=== PATIENT | female | born 1980 | race Caucasian/White ===

== ENCOUNTER → 2017-11-14 17:36 | Outpatient (CLI) | payer OTHER, SELFPAY ==
--- NOTE | 2017-11-14 17:42 | DI.RAD.S_ITS ---
PROCEDURE: XR KNEE RT 3V INDICATIONS: knee pain from fall with effusion. Valgus motion TECHNIQUE: 3 views of the knee were acquired. COMPARISON: None. FINDINGS: Bones: No fractures or dislocations. No suspicious bony lesions. Soft tissues: Small joint effusion. No suspicious soft tissue calcifications. IMPRESSION: Small joint effusion. No acute fractures or dislocations. If symptoms persist consider a followup radiographic series or noncontrast MRI. Dictated by: Km Us M.D. on 11/14/2017 at 18:37 Approved by: Km Us M.D. on 11/14/2017 at 18:38
--- NOTE | 2017-11-14 17:42 | DI.RAD.S_ITS ---
PROCEDURE: XR TIBIA FUBULA RT 2V INDICATIONS: knee pain from fall with effusion. TECHNIQUE: 2 views of the tibia and fibula were acquired. COMPARISON: None. FINDINGS: Bones: No fractures or dislocations. No suspicious bony lesions. Soft tissues: No suspicious soft tissue calcifications or masses. IMPRESSION: No acute fractures or dislocations. Dictated by: Km Us M.D. on 11/14/2017 at 18:37 Approved by: Km Us M.D. on 11/14/2017 at 18:37
--- NOTE | 2017-11-14 17:42 | DI.RAD.S_ITS ---
PROCEDURE: XR ANKLE RT MIN 3V INDICATIONS: knee pain from fall with effusion. TECHNIQUE: 3 views of the ankle were acquired. COMPARISON: None. FINDINGS: Bones: No fractures or dislocations. Ankle mortise is normally aligned. No suspicious bony lesions. Soft tissues: No tibiotalar joint effusion. Achilles tendon appears normal. IMPRESSION: No acute fractures or dislocations. Please note, the anterior talar process is poorly seen and cannot be evaluated. Dictated by: Km Us M.D. on 11/14/2017 at 18:38 Approved by: Km Us M.D. on 11/14/2017 at 18:39
== END ==
PROVIDERS: Family Provider Internal Medicine; PCP Internal Medicine; Visit Provider Physician Assistant
DX: M25.561 Pain in right knee (principal); M25.461 Effusion, right knee
CPT/HCPCS: 73562; 73590; 73610

== ENCOUNTER 2017-12-16 09:11 | Emergency (ER) | payer OTHER, SELFPAY ==
[2017-12-16 09:29] VITALS: BP 131/88; PULSE 72; RESP 18; TEMP 36.7; O2SAT 99
--- NOTE | 2017-12-16 09:42 | DI.CT.S_ITS ---
PROCEDURE: CT ABDOMEN PELVIS W CON INDICATIONS: Left-sided abdominal pain TECHNIQUE: After the administration of intravenous contrast, 5 mm thick sections acquired from the diaphragm to the symphysis. 5 mm coronal and sagittal reformats were acquired. For radiation dose reduction, the following was used: automated exposure control, adjustment of mA and/or kV according to patient size. COMPARISON: [facility], CT, ABDOMEN/PELVIS WITH CONTRAST, 02/21/2015, 9:28. FINDINGS: Image quality: Excellent. ABDOMEN: Lung bases: Mild bibasilar dependent atelectasis are noted posteriorly. Heart size is normal. Solid organs: Liver is normal in size. Tiny well-circumscribed hypodense areas are noted in liver parenchyma, unchanged in size and numbers from previous study and likely represent benign cysts. Gallbladder is within normal limits.. Biliary system is non dilated. Pancreas enhances normally. Spleen is normal in size and enhancement. No adrenal nodules. Kidneys demonstrate normal size and enhancement, without hydronephrosis. Peritoneum and bowel: Bowel loops demonstrate normal wall thickness and caliber. No free fluid or air. Small hiatal hernia is seen. No evidence of acute appendicitis or diverticulitis. Nodes and vessels: No retroperitoneal or mesenteric adenopathy by size criteria. Aorta and inferior vena cava are normal in size. Miscellaneous: No ventral hernias. PELVIS: Genitourinary: Bladder wall thickness is normal. Miscellaneous: No inguinal hernias or adenopathy. Bones: No suspicious bony lesions. No vertebral body compression fractures. Degenerative disc disease at L5-S1 level is noted. IMPRESSION: No acute inflammatory process within abdomen or pelvis. No finding to account for patient's symptoms. Degenerative disc disease at L5-S1 level. Dictated by: Bill Tidwell M.D. on 12/16/2017 at 10:55 Approved by: Bill Tidwell M.D. on 12/16/2017 at 11:01
--- NOTE | 2017-12-16 09:52 | ED_ITS ---
HPI - Abdominal Pain General Chief Complaint: Urogenital-Female Stated Complaint: left side pain, vomitting Time Seen by Provider: 12/16/17 09:15 Source: patient Mode of arrival: ambulatory Limitations: no limitations History of Present Illness HPI narrative: Patient is a 37-year-old female here for evaluation of left upper quadrant and left CVA tenderness. She states that has been going on for 2 weeks now. Has also had diarrhea for this period of time. No fevers. No skin changes. No change in diet. No urinary symptoms. Has not tried anything for it prior to arrival. Has had some nausea and vomiting as well. Did have a abdominal hysterectomy secondary to fibroids otherwise no other abdominal surgeries. Related Data Home Medications Medication Instructions Recorded Confirmed gabapentin [Neurontin] 300 mg PO BEDTIME 12/16/17 12/16/17 Previous Rx's Medication Instructions Recorded ondansetron [Zofran ODT] 4 mg PO BID-TID PRN #7 tab 12/16/17 Allergies Allergy/AdvReac Type Severity Reaction Status Date / Time amoxicillin [AMOXICILLIN] Allergy Severe THROAT Verified 12/16/17 09:42 CLOSED OFF, RESPIRATORY DISTRESS coffee (Coffea arabica) Allergy Severe RESPIRATORY Verified 12/16/17 09:42 [COFFEE (COFFEA ARABICA)] DISTRESS guaifenesin [From MUCINEX] Allergy Severe NAUSEA/EMES Verified 12/16/17 09:42 IS clavulanic acid Allergy Unknown Verified 12/16/17 09:42 [CLAVULANIC ACID] Review of Systems Constitutional Denies fever(s) ENT Ears, Nose, Mouth, and Throat: Denies vertigo and Denies dizziness Cardiovascular Denies chest pain, Denies syncope and Denies dyspnea Respiratory Denies dyspnea Gastrointestinal Gastrointestinal: Reports abdominal pain, Denies change in stool character, Denies constipation, Reports diarrhea, Reports nausea and Reports vomiting Genitourinary Denies dysuria and Reports flank pain Musculoskeletal Denies myalgias and Denies arthralgias Integumentary/Breasts Denies pruritus and Denies rash Neurologic Denies vertigo, Denies dizziness and Denies syncope Hematologic/Lymphatic Denies easy bleeding and Denies easy bruising [facility] Medical History Fibroids (Acute) Surgical History Status post laparoscopic supracervical hysterectomy (07/09/17) Social History Smoking Status: Never smoker Exam Initial Vital Signs Initial Vital Signs: Vital Signs Temperature 98.1 F 12/16/17 09:29 Pulse Rate 72 12/16/17 09:29 Respiratory Rate 18 12/16/17 09:29 Blood Pressure 131/88 H 12/16/17 09:29 Pulse Oximetry 99 12/16/17 09:29 Const General: cooperative, healthy appearing, well developed, well groomed and No acute distress Orientation: alert, awake and oriented x3 HENMT Head: normal to inspection and normocephalic Resp Effort & Inspection: normal respiratory effort Auscultation: clear to auscultation bilaterally Cardio Rate: regular rate Rhythm: regular rhythm Heart Sounds: no murmurs Pulses: radial pulses present GI Inspection: non-distended Palpation: soft, No firm and tender (Left upper quadrant pain no rebound or guarding) Skin Lesions: lesions noted Rashes: no rashes Neuro General: alert, awake and oriented x3 Cognition: normal cognition Speech: speech normal Extrem General: normal to inspection and capillary refill normal Psych Appearance: grossly normal and well kempt Course Orders Ordered: ED Orders 12/16/17 09:42 CT abdomen pelvis w con Stat 12/16/17 09:49 Complete Blood Count AUTO DIFF Stat Comprehensive Metabolic Panel Stat Lipase Stat Discontinued Medications Sodium Chloride (Normal Saline 0.9%) 1,000 mls @ 1,000 mls/hr IV BOLUS ONE Stop: 12/16/17 10:50 Last Infusion: 12/16/17 11:38 Dose: 0 mls/hr Admin: 12/16/17 09:59 Dose: 1,000 mls/hr Morphine Sulfate (Morphine) 4 mg IV NOW ONE Stop: 12/16/17 09:43 Last Admin: 12/16/17 09:59 Dose: 4 mg Ondansetron HCl (Zofran) 4 mg IV NOW ONE Stop: 12/16/17 09:43 Last Admin: 12/16/17 09:59 Dose: 4 mg Ondansetron HCl (Zofran) 4 mg IV NOW ONE Stop: 12/16/17 10:57 Last Admin: 12/16/17 11:02 Dose: 4 mg Vital Signs - 8 hr 12/16/17 09:29 12/16/17 11:02 Temperature 98.1 F Pulse Rate 72 60 Respiratory Rate 18 12 Blood Pressure 131/88 H Blood Pressure [Right Arm] 127/70 H Pulse Oximetry 99 100 MDM - Abdominal Pain Lab Data Attestation: I reviewed the patient's lab results. Result diagrams: 12/16/17 09:49 12/16/17 09:49 Lab Results 12/16/17 12/16/17 Range/Units 09:49 09:49 WBC 8.0 (4.5-11.0) X10^3/uL RBC 4.67 (4.0-5.2) X10^6/uL Hgb 13.8 (12.0-16.0) g/dL Hct 39.6 (36-46) % MCV 84.7 (80-100) fL MCH 29.5 (26-34) PG MCHC 34.9 (30-36) % RDW 12.9 (11.6-14.8) % Plt Count 242 (150-400) X10^3/uL Neut % (Auto) 77.6 H (50-75) % Lymph % (Auto) 15.4 L (25-40) % [place] % (Auto) 5.9 (3-14) % Eos % (Auto) 0.7 L (2-4) % Baso % (Auto) 0.4 (0-2) % Neut # (Auto) 6200 H (3759-4047) /uL Sodium 143 (137-145) mmol/L Potassium 3.8 (3.4-5.1) mmol/L Chloride 108 H (98-107) mmol/L Carbon Dioxide 26 (22-32) mmol/L BUN 6 L (7-17) mg/dL Creatinine 0.70 (0.52-1.04) mg/dL Estimated GFR > 60.0 (>60) mL/min BUN/Creatinine Ratio 8.6 (6-22) Glucose 108 H (70-100) mg/dL Calcium 9.1 (8.4-10.2) mg/dL Total Bilirubin 1.0 (0.2-1.3) mg/dL AST 16 (14-36) IU/L ALT 21 (9-52) IU/L Alkaline Phosphatase 63 (38-126) U/L Total Protein 7.0 (6.3-8.2) g/dL Albumin 4.1 (3.5-5.0) g/dL Globulin 2.9 (1.7-4.1) g/dL Albumin/Globulin Ratio 1.4 (1.0-2.8) Lipase 31 (23-300) U/L Point of care testing: Urine Dip Bedside Urine Glucose Negative Bedside Urine Bilirubin - Negative Bedside Urine Ketone - Negative Urine Specific [place] 1.015 Bedside Urine Occult Blood - Negative Bedside Urine Protein - Negative Bedside Urine Urobilinogen - Negative Bedside Urine Nitrite - Negative Bedside Urine Leukocytes - Negative Esterase Imaging Data CT scan - abdomen: Radiologist's impression: [address] [address] [address] Scan Report Signed Patient: Betsy Austin LMR#: [id number] : 1980Acct:[id number] Age/Sex: 37 / FDate of Service: 12/16/17 Loc: ED Accession Number: [id number] Procedure: CT abdomen pelvis w con Ordering Provider: Kiko Sims D.O. PROCEDURE: CT ABDOMEN PELVIS W CON INDICATIONS: Left-sided abdominal pain TECHNIQUE: After the administration of intravenous contrast, 5 mm thick sections acquired from the diaphragm to the symphysis. 5 mm coronal and sagittal reformats were acquired. For radiation dose reduction, the following was used: automated exposure control, adjustment of mA and/or kV according to patient size. COMPARISON: [facility], CT, ABDOMEN/PELVIS WITH CONTRAST, 02/21/2015, 9: 28. FINDINGS: Image quality: Excellent. ABDOMEN: Lung bases: Mild bibasilar dependent atelectasis are noted posteriorly. Heart size is normal. Solid organs: Liver is normal in size. Tiny well-circumscribed hypodense areas are noted in liver parenchyma, unchanged in size and numbers from previous study and likely represent benign cysts. Gallbladder is within normal limits.. Biliary system is non dilated. Pancreas enhances normally. Spleen is normal in size and enhancement. No adrenal nodules. Kidneys demonstrate normal size and enhancement, without hydronephrosis. Peritoneum and bowel: Bowel loops demonstrate normal wall thickness and caliber. No free fluid or air. Small hiatal hernia is seen. No evidence of acute appendicitis or diverticulitis. Nodes and vessels: No retroperitoneal or mesenteric adenopathy by size criteria. Aorta and inferior vena cava are normal in size. Miscellaneous: No ventral hernias. PELVIS: Genitourinary: Bladder wall thickness is normal. Miscellaneous: No inguinal hernias or adenopathy. Bones: No suspicious bony lesions. No vertebral body compression fractures. Degenerative disc disease at L5-S1 level is noted. IMPRESSION: No acute inflammatory process within abdomen or pelvis. No finding to account for patient's symptoms. Degenerative disc disease at L5-S1 level. Dictated by: Bill Tidwell M.D. on 12/16/2017 at 10:55 Approved by: Bill Tidwell M.D. on 12/16/2017 at 11:01 [facility] Narrative Medical decision making narrative: Is relatively benign abdominal exam here in the ER. CT scan was negative for acute pathology. Patient is not tried anything at home for her diarrhea. We did discuss the use of Imodium. Also sent home with a prescription for Zofran. No skin changes. Patient with given return precautions she expressed understanding and agreement with plan Discharge Plan Departure Patient Disposition: Home Clinical Impression: Abdominal pain, Vomiting and diarrhea Discharge Date/Time: 12/16/17 11:54 Interventions: ED Discharge Assessment Last Done: 12/16/17 11:53 Instructions: Diarrhea, DI for Abdominal Pain-Adult, DI for Vomiting -- Adult Activity Restrictions/Additional Instructions: Increase your fluid intake. Contact your primary care doctor on Sunday for a follow-up. Take the medication like we discussed. Return to the emergency department for any new or worsening symptoms. Recommend that you purchase Imodium/loperamide [id number] as the anti diarrheal agent. Prescriptions: New ondansetron [Zofran ODT] 4 mg tablet,disintegrating 4 mg PO BID-TID PRN (Reason: nausea and vomiting) Qty: 7 RF: 0 No Action gabapentin [Neurontin] 300 mg Capsule 300 mg PO BEDTIME RF: 0
[2017-12-16 09:56] LABS: Add Manual Diff / Slide Review NO; Basophils Percent Auto 0.4 % (0-2); Eosinophils Percent Auto 0.7 % (2-4); Hematocrit 39.6 % (36-46); Hemoglobin 13.8 g/dL (12.0-16.0); Lymphocytes Percent Auto 15.4 % (25-40); Mean Corpuscular HGB Conc 34.9 % (30-36); Mean Corpuscular Hemoglobin 29.5 PG (26-34); Mean Corpuscular Volume 84.7 fL (80-100); Monocytes Percent Auto 5.9 % (3-14); Neutrophils Absolute Auto 6200 /uL (3000-5900); Neutrophils Percent Auto 77.6 % (50-75); Platelet Count 242 X10^3/uL (150-400); Red Blood Cell Count 4.67 X10^6/uL (4.0-5.2); Red Cell Distribution Width 12.9 % (11.6-14.8)
[2017-12-16] MEDS: SODIUM CHLORIDE 0.9% 1,000 ML 1000 ML IV (09:59)
[2017-12-16] MEDS: ONDANSETRON 4 MG/2 ML INJ IV ×2 (09:59→11:02)
[2017-12-16] MEDS: MORPHINE 4 MG/ML INJ IV (09:59)
[2017-12-16 10:08] LABS: Alanine Aminotransferase 21 IU/L (9-52); Albumin 4.1 g/dL (3.5-5.0); Albumin Globulin Ratio 1.4 (1.0-2.8); Alkaline Phosphatase 63 U/L (38-126); Aspartate Aminotransferase 16 IU/L (14-36); BUN Creatinine Ratio 8.6 (6-22); Blood Urea Nitrogen 6 mg/dL (7-17); Calcium 9.1 mg/dL (8.4-10.2); Carbon Dioxide 26 mmol/L (22-32); Chloride 108 mmol/L (98-107); Estimated Glomerular Filt Rate > 60.0 mL/min (>60); Globulin 2.9 g/dL (1.7-4.1); Glucose 108 mg/dL (70-100); HEMOLYSIS < 15 (0-50); Lipase 31 U/L (23-300); Potassium 3.8 mmol/L (3.4-5.1); Sodium 143 mmol/L (137-145)
[2017-12-16 11:02] VITALS: BP 127/70; PULSE 60; RESP 12; O2SAT 100
== END 2017-12-16 11:54 | disposition home or self-care (01) ==
PROVIDERS: Emergency Provider Emergency Medicine; Family Provider Internal Medicine; PCP Internal Medicine
DX: R10.9 Unspecified abdominal pain (principal); R11.0 Nausea; R19.7 Diarrhea, unspecified
CPT/HCPCS: 36591; 74177; 80053; 81003; 83690; 85025; 96361; 96374; 96375; 96376; 99283; 99285; J2270; J2405; Q9967

== ENCOUNTER 2017-12-17 10:11 | Emergency (ER) | payer OTHER, SELFPAY ==
[2017-12-17 10:24] VITALS: BP 136/80; PULSE 65; RESP 14; TEMP 36.7; O2SAT 100
[2017-12-17 10:40] VITALS: BP 136/80; PULSE 65; RESP 14; TEMP 36.7; O2SAT 100
[2017-12-17] MEDS: ONDANSETRON 4 MG/2 ML INJ IV ×2 (11:05→12:58)
[2017-12-17 11:09] LABS: Add Manual Diff / Slide Review NO; Basophils Percent Auto 0.5 % (0-2); Eosinophils Percent Auto 0.3 % (2-4); Hematocrit 39.8 % (36-46); Hemoglobin 13.9 g/dL (12.0-16.0); Lymphocytes Percent Auto 13.1 % (25-40); Mean Corpuscular Volume 85.7 fL (80-100); Monocytes Percent Auto 4.9 % (3-14); Neutrophils Absolute Auto 7400 /uL (3000-5900); Neutrophils Percent Auto 81.2 % (50-75); Platelet Count 238 X10^3/uL (150-400); Red Blood Cell Count 4.64 X10^6/uL (4.0-5.2); Red Cell Distribution Width 12.7 % (11.6-14.8); White Blood Cell Count 9.1 X10^3/uL (4.5-11.0)
[2017-12-17 11:15] LABS: INR 1.2 (0.9-1.3); Prothrombin Time 12.7 SECONDS (10.1-12.7)
[2017-12-17 11:17] LABS: PTT Partial Thromboplastin Tim 30 SECONDS (26.4-36.2)
[2017-12-17 11:19] LABS: Alanine Aminotransferase 26 IU/L (9-52); Albumin 4.2 g/dL (3.5-5.0); Albumin Globulin Ratio 1.6 (1.0-2.8); Alkaline Phosphatase 57 U/L (38-126); Aspartate Aminotransferase 16 IU/L (14-36); BUN Creatinine Ratio 7.5 (6-22); Bilirubin Total 1.1 mg/dL (0.2-1.3); Blood Urea Nitrogen 6 mg/dL (7-17); Calcium 9.3 mg/dL (8.4-10.2); Carbon Dioxide 27 mmol/L (22-32); Chloride 106 mmol/L (98-107); Estimated Glomerular Filt Rate > 60.0 mL/min (>60); Globulin 2.7 g/dL (1.7-4.1); Glucose 99 mg/dL (70-100); HEMOLYSIS 19 (0-50); Lipase 27 U/L (23-300); Sodium 144 mmol/L (137-145); Total Protein 6.9 g/dL (6.3-8.2)
--- NOTE | 2017-12-17 11:55 | ED.NAVMDI ---
HPI - Nausea/Vomiting/Diarrhea General Chief complaint: Nausea/Vomiting/Diarrhea Stated complaint: KEEP THROWING UP, PAIN IN LEFT SIDE, DIARRHEA Time Seen by Provider: 12/17/17 10:40 Source: patient Mode of arrival: ambulatory Limitations: no limitations History of Present Illness HPI Narrative: Patient is a 37-year-old female presenting with diarrhea and vomiting. She said she has had diarrhea ongoing the last 2 weeks and over the last 3 days she has been vomiting. She was seen evaluated yesterday for the same where she had blood work and a CT. She was given Zofran to go home with and she says of brain is no longer working. She is not keeping anything down Related Data Home Medications Medication Instructions Recorded Confirmed gabapentin [Neurontin] 300 mg PO BEDTIME 12/16/17 12/16/17 Previous Rx's Medication Instructions Recorded ondansetron [Zofran ODT] 4 mg PO BID-TID PRN #7 tab 12/16/17 promethazine 25 mg PO Q6H PRN #10 tab 12/17/17 Allergies Allergy/AdvReac Type Severity Reaction Status Date / Time amoxicillin [AMOXICILLIN] Allergy Severe THROAT Verified 12/16/17 09:42 CLOSED OFF, RESPIRATORY DISTRESS coffee (Coffea arabica) Allergy Severe RESPIRATORY Verified 12/16/17 09:42 [COFFEE (COFFEA ARABICA)] DISTRESS guaifenesin [From MUCINEX] Allergy Severe NAUSEA/EMES Verified 12/16/17 09:42 IS clavulanic acid Allergy Unknown Verified 12/16/17 09:42 [CLAVULANIC ACID] Review of Systems Review of Systems GENERAL: Denies chills, fatigue, malaise, fever, sweats, travel HEENT: Denies sinus pain, ear pain, sore throat, difficulty swallowing, neck pain RESPIRATORY: Denies dyspnea, cough, wheezing, hemoptysis, sputum. CARDIOVASCULAR: Denies chest pain, palpitations, orthopnea, edema GASTROINTESTINAL: See HPI : Denies dysuria, frequency, incontinence, hematuria, urinary retention, flank pain. MUSCULOSKELETAL: Denies weakness, joint pain, or bony pain SKIN: No rash, no erythema, no pruritus NEUROLOGIC: Denies weakness, dizziness, headache, numbness, change in speech, confusion PSYCHIATRIC: No concerning psychosocial issues. 12 point review of systems is negative except for those stated above and HPI [facility] Medical History Fibroids (Acute) Healthy adult (Acute) Surgical History Status post laparoscopic supracervical hysterectomy (07/09/17) Social History Smoking Status: Never smoker Exam Initial Vital Signs Initial Vital Signs: Vital Signs Temperature 98.1 F 12/17/17 10:24 Pulse Rate 65 12/17/17 10:24 Respiratory Rate 14 12/17/17 10:24 Blood Pressure 136/80 H 12/17/17 10:24 Pulse Oximetry 100 12/17/17 10:24 GENERAL: Well-appearing, well-nourished and in no acute distress. HEENT: Head atraumatic,EOMI, pupils reactive, moist mucous membranes, neck is supple CARDIOVASCULAR: Regular rate and rhythm without murmurs, rubs or gallops. RESPIRATORY: Breath sounds equal bilaterally, no wheezes rales or rhonchi. ABDOMEN: Soft, nontender. Normoactive bowel sounds all 4 quadrants. No guarding or rebound. : No CVA tenderness EXTREMITIES: Normal range of motion, no clubbing or edema. Neurovascularly intact NEUROLOGICAL: Alert and oriented x4.Normal gait and speech. Cranial nerves II through XII grossly intact. SKIN: Warm, dry, no laceration, no petechiae, no rashes or lesions. Course Orders Ordered: ED Orders 12/17/17 10:56 Complete Blood Count AUTO DIFF Stat Comprehensive Metabolic Panel Stat Lipase Stat Partial Thromboplastin Time Stat Prothrombin Time INR Stat Discontinued Medications Sodium Chloride (Normal Saline 0.9%) 1,000 mls @ 1,000 mls/hr IV BOLUS ONE Stop: 12/17/17 13:07 Last Infusion: 12/17/17 13:21 Dose: 0 mls/hr Admin: 12/17/17 12:16 Dose: 1,000 mls/hr Ondansetron HCl (Zofran) 4 mg IV NOW ONE Stop: 12/17/17 10:29 Last Admin: 12/17/17 11:05 Dose: 4 mg Ondansetron HCl (Zofran) 4 mg IV NOW ONE Stop: 12/17/17 12:45 Last Admin: 12/17/17 12:58 Dose: 4 mg Pantoprazole Sodium (Protonix) 40 mg IV NOW ONE Stop: 12/17/17 12:45 Last Admin: 12/17/17 12:58 Dose: 40 mg Vital Signs - 8 hr 12/17/17 11:57 12/17/17 12:18 12/17/17 13:38 Pulse Rate 56 L 56 L 58 L Respiratory Rate 14 14 20 Blood Pressure 124/73 H Blood Pressure [Left Arm] 116/69 115/67 Pulse Oximetry 95 97 100 MDM - Nausea/Vomiting/Diarrhea Lab Data Attestation: I reviewed the patient's lab results. Result diagrams: 12/17/17 10:56 12/17/17 10:56 Lab Results 12/17/17 12/17/17 12/17/17 Range/Units 10:56 10:56 10:56 WBC 9.1 (4.5-11.0) X10^3/uL RBC 4.64 (4.0-5.2) X10^6/uL Hgb 13.9 (12.0-16.0) g/dL Hct 39.8 (36-46) % MCV 85.7 (80-100) fL MCH 30.0 (26-34) PG MCHC 35.0 (30-36) % RDW 12.7 (11.6-14.8) % Plt Count 238 (150-400) X10^3/uL Neut % (Auto) 81.2 H (50-75) % Lymph % (Auto) 13.1 L (25-40) % [place] % (Auto) 4.9 (3-14) % Eos % (Auto) 0.3 L (2-4) % Baso % (Auto) 0.5 (0-2) % Neut # (Auto) 7400 H (8135-6994) /uL PT 12.7 (10.1-12.7) SECONDS INR 1.2 (0.9-1.3) APTT 30 (26.4-36.2) SECONDS Sodium 144 (137-145) mmol/L Potassium 4.0 (3.4-5.1) mmol/L Chloride 106 (98-107) mmol/L Carbon Dioxide 27 (22-32) mmol/L BUN 6 L (7-17) mg/dL Creatinine 0.80 (0.52-1.04) mg/dL Estimated GFR > 60.0 (>60) mL/min BUN/Creatinine Ratio 7.5 (6-22) Glucose 99 (70-100) mg/dL Calcium 9.3 (8.4-10.2) mg/dL Total Bilirubin 1.1 (0.2-1.3) mg/dL AST 16 (14-36) IU/L ALT 26 (9-52) IU/L Alkaline Phosphatase 57 (38-126) U/L Total Protein 6.9 (6.3-8.2) g/dL Albumin 4.2 (3.5-5.0) g/dL Globulin 2.7 (1.7-4.1) g/dL Albumin/Globulin Ratio 1.6 (1.0-2.8) Lipase 27 (23-300) U/L MDM Narrative Medical decision making narrative: Patient tolerating oral fluids she feels ready and able to go home. No leukocytosis no further vomiting or diarrhea in the ED. Signs and symptoms consistent with gastroenteritis. CT negative from yesterday. Discharge Plan Departure Patient Disposition: Home Clinical Impression: Gastroenteritis Discharge Date/Time: 12/17/17 13:49 Interventions: ED Discharge Assessment Last Done: 12/17/17 13:38 Instructions: DI for Viral Gastroenteritis -- Adult Activity Restrictions/Additional Instructions: 1) You have been diagnosed with gastroenteritis 2) What to do: Drink frequent but small amounts of fluids. I recommend Gatorade or a Gatorade-like product, as it has small amounts of sugar and salts that improve fluid retention. 3) Take medications as directed 4) Follow up with your primary care provider in 2-3 days 5) Return to ER if you should have any new or worsening symptoms such as, unable to hold down fluids despite use of anti-nausea medications and the small volume oral rehydration strategy. Prescriptions: New promethazine 25 mg tablet 25 mg PO Q6H PRN (Reason: nausea and vomiting) Qty: 10 RF: 0 No Action gabapentin [Neurontin] 300 mg Capsule 300 mg PO BEDTIME RF: 0 ondansetron [Zofran ODT] 4 mg tablet,disintegrating 4 mg PO BID-TID PRN (Reason: nausea and vomiting) Qty: 7 RF: 0 Referrals: Neema Garcia MD [Primary Care Provider] -
[2017-12-17 11:57] VITALS: BP 116/69; PULSE 56; RESP 14; O2SAT 95
[2017-12-17] MEDS: SODIUM CHLORIDE 0.9% 1,000 ML 1000 ML IV (12:16)
[2017-12-17 12:18] VITALS: BP 115/67; PULSE 56; RESP 14; O2SAT 97
[2017-12-17] MEDS: PANTOPRAZOLE 40 MG VIAL IV (12:58)
--- NOTE | 2017-12-17 13:00 | PC.NURSE ---
Pt given crackers for NPO challenge. Pt able to keep crackers down without vomiting.
[2017-12-17 13:38] VITALS: BP 124/73; PULSE 58; RESP 20; O2SAT 100
== END 2017-12-17 13:49 | disposition home or self-care (01) ==
PROVIDERS: Emergency Provider Emergency Medicine; Family Provider Internal Medicine; PCP Internal Medicine
DX: K52.9 Noninfective gastroenteritis and colitis, unspecified (principal)
CPT/HCPCS: 36591; 80053; 81003; 83690; 85025; 85610; 85730; 96361; 96374; 96375; 96376; 99283; 99284; C9113; J2405

== ENCOUNTER → 2017-12-21 08:54 | Outpatient (CLI) | payer OTHER, SELFPAY ==
--- NOTE | 2017-12-21 | DI.MRI.S_ITS ---
PROCEDURE: MR KNEE RT WO CON INDICATIONS: PAIN IN RIGHT KNEE TECHNIQUE: Noncontrast sagittal PD fast spin echo and T2 fast spin echo with fat saturation, sagittal 3-D FLASH with fat saturation; coronal T1 spin echo and PD fast spin echo with fat saturation, and axial PD fast spin echo with fat saturation through the knee. COMPARISON: None. FINDINGS: Image quality: Excellent. Menisci: The medial meniscus appears intact. Marked truncated appearance of the free margin of the body of the lateral meniscus. Cruciate ligaments: The anterior and posterior cruciate ligaments appear intact. Medial structures: The medial collateral ligament appears thickened with internal signal change although no complete rupture. There is adjacent soft tissue edema. Semimembranosus appears intact. Visualized portions of the pes anserinus tendons appear normal. No abnormal bursal fluid. Lateral structures: The lateral collateral ligament, long and short heads of the biceps femoris tendon appear intact. The popliteus tendon appears normal; the popliteofibular ligament appears intact. The posterosuperior and anteroinferior popliteomeniscal fascicles appear intact. The arcuate and fabellofibular ligaments appear intact, on either side of the lateral inferior geniculate artery. Iliotibial band appears normal. Anterior structures: The quadriceps and patellar tendons appear intact. There is minimal pretibial subcutaneous edema Patellar alignment is normal. No femoral trochlear dysplasia or ventral trochlear prominence. No edema in the infrapatellar fat pad. Bones and cartilage: No discrete fracture identified however there is focal marrow edema suggestive of contusion at the posterior aspect of the lateral femoral condyle Within the medial compartment, the articular cartilage appears grossly intact. Within the lateral compartment, no focal defect is seen however there is diffuse intrasubstance signal change of the tibial cartilage. Within the patellofemoral compartment, there is mild surface fraying of the cartilage overlying the median patellar ridge and lateral facet. Joint space: There is physiologic knee joint fluid. No Ramirez's cyst. IMPRESSION: Mild marrow contusion involving the posterolateral femoral condyle. Sprain of the medial collateral ligament. No complete rupture Lateral meniscal tear involving the free margin of the body. Mild degenerative joint disease as above. Dictated by: Roque Sinclair M.D. on 12/21/2017 at 10:11 Approved by: Roque Sinclair M.D. on 12/21/2017 at 10:20
== END ==
PROVIDERS: Family Provider Internal Medicine; PCP Internal Medicine; Visit Provider Internal Medicine
DX: S83.281A Other tear of lateral meniscus, current injury, right knee, initial encounter (principal); S83.411A Sprain of medial collateral ligament of right knee, initial encounter; S80.01XA Contusion of right knee, initial encounter; M17.11 Unilateral primary osteoarthritis, right knee; M25.561 Pain in right knee
CPT/HCPCS: 73721

== ENCOUNTER → 2018-01-02 09:34 | Outpatient (CLI) | payer OTHER, SELFPAY ==
--- NOTE | 2018-01-02 | DI.CT.S_ITS ---
PROCEDURE: CT ABDOMEN PELVIS W CON INDICATIONS: Nausea, vomitting, Diarrhea. Left sided abdominal and pelvic pain. Weight loss TECHNIQUE: After the administration of oral and intravenous contrast, 5 mm thick sections acquired from the diaphragms to the symphysis. 5 mm thick coronal and sagittal reformats were performed. For radiation dose reduction, the following was used: automated exposure control, adjustment of mA and/or kV according to patient size. COMPARISON: [facility], CT, CT ABDOMEN PELVIS W CON, 12/16/2017, 10:32. FINDINGS: Image quality: Excellent. ABDOMEN: Lung bases: Lung bases are clear. Heart size is normal. Solid organs: Small right and left hepatic lobe cysts are present. Liver is otherwise normal in size and enhancement. Gallbladder is within normal limits. Biliary system is non-dilated. Pancreas enhances normally. Small posterior medial hepatic cysts are present. Spleen is otherwise normal in size and enhancement. No adrenal nodules. Kidneys are normal in size and enhancement, without hydronephrosis. Peritoneum and bowel: Stomach, small bowel, and colon loops are normal in caliber and wall thickness. No free fluid or air. Appendix not seen. No evidence of appendicitis. Nodes and vessels: No retroperitoneal or mesenteric adenopathy. Aorta and inferior vena cava are normal in caliber. Miscellaneous: No ventral hernias. PELVIS: Genitourinary: Bladder wall thickness is normal. Miscellaneous: No inguinal hernias or adenopathy. Bones: No suspicious bony lesions. No vertebral body compression fractures. IMPRESSION: 1. No acute process. 2. Appendix not seen. No evidence of appendicitis. Dictated by: Jesus Ahuja M.D. on 01/02/2018 at 11:26 Approved by: Jesus Ahuja M.D. on 01/02/2018 at 11:28
[2018-01-02 12:31] LABS: Adenovirus F 40/41 Not Detected (Not Detect); Astrovirus Not Detected (Not Detect); Campylobacter Not Detected (Not Detect); Clostridium difficile toxin AB Not Detected (Not Detect); Cryptosporidium Not Detected (Not Detect); Cyclospora cayetanensis Not Detected (Not Detect); Entamoeba histolytica Not Detected (Not Detect); Enteroaggregative E.coli Not Detected (Not Detect); Enteropathogenic E.coli Not Detected (Not Detect); Enterotoxigenic E.coli It/st Not Detected (Not Detect); Giardia lamblia Not Detected (Not Detect); Norovirus GI/GII Not Detected (Not Detect); Plesiomonsa shigelloides Not Detected (Not Detect); Rotavirus A Not Detected (Not Detect); Salmonella Not Detected (Not Detect); Shiga-like toxin-prod E.coli Not Detected (Not Detect); Shigella/Enteroinvasive E.coli Not Detected (Not Detect); Vibrio Not Detected (Not Detect); Vibrio cholerae Not Detected (Not Detect); Yersinia enterocolitica Not Detected (Not Detect)
== END ==
PROVIDERS: Family Provider Internal Medicine; PCP Internal Medicine; Visit Provider Internal Medicine
DX: R19.7 Diarrhea, unspecified (principal); R11.2 Nausea with vomiting, unspecified; R10.9 Unspecified abdominal pain; R10.2 Pelvic and perineal pain; R63.4 Abnormal weight loss
CPT/HCPCS: 74177; 87507; Q9967

== ENCOUNTER → 2018-02-01 09:55 | Outpatient (CLI) | payer OTHER, SELFPAY ==
--- NOTE | 2018-02-01 | DI.RAD.S_ITS ---
PROCEDURE: XR TIBIA FUBULA RT 2V INDICATIONS: PAIN IN RT LEG TECHNIQUE: 2 views of the tibia and fibula were acquired. COMPARISON: [facility], CR, XR KNEE RT 3V, 11/14/2017, 17:21. [facility], CR, XR TIBIA FIBULA RT 2V, 11/14/2017, 17:21. FINDINGS: Bones: No fractures or dislocations. No suspicious bony lesions. Soft tissues: No suspicious soft tissue calcifications or masses. IMPRESSION: Normal plain films. Stable from prior. Dictated by: Chris Choi M.D. on 02/01/2018 at 9:48 Approved by: Chris Choi M.D. on 02/01/2018 at 9:48
== END ==
PROVIDERS: PCP Internal Medicine; Visit Provider Internal Medicine
DX: M79.661 Pain in right lower leg (principal)
CPT/HCPCS: 73590

== ENCOUNTER → 2018-02-12 14:01 | Outpatient (CLI) | payer OTHER, SELFPAY ==
[2018-02-12 15:04] LABS: HEMOLYSIS 26 (0-50); Potassium 4.3 mmol/L (3.4-5.1)
== END ==
PROVIDERS: Family Provider Internal Medicine; PCP Internal Medicine; Visit Provider Physician Assistant Medical
DX: Z79.899 Other long term (current) drug therapy (principal)
CPT/HCPCS: 36415; 84132

== ENCOUNTER 2018-02-17 09:15 | Emergency (ER) | payer OTHER, SELFPAY ==
[2018-02-17 09:28] VITALS: BP 118/68; PULSE 58; RESP 15; TEMP 36.8; O2SAT 97; BMI 30.7
--- NOTE | 2018-02-17 10:09 | ED.NAVMDI ---
HPI - Nausea/Vomiting/Diarrhea General Chief complaint: Abdominal Pain Stated complaint: THROWING FOR 12 HOURS Time Seen by Provider: 02/17/18 09:57 Source: patient Mode of arrival: ambulatory Limitations: no limitations History of Present Illness HPI Narrative: This is a 38-year-old female has come to the emergency department for complaint of vomiting and diarrhea for the past 12 hr. Patient states afterwards she started to have headache 2. Patient states that she was at a [employer] last night, she had some alcohol up there is also a buffet and she thinks she may have had something that made her ill. Patient states that she is not really having any abdominal pain. She has been continuing to dry heave. She had Zofran ODT as well as promethazine at home she was unable to keep down and was not helpful for her symptoms. She denies any black or bloody stools with the diarrhea. She is not having any urinary urgency or dysuria. She is having some frequency but states that it has been occurring since she had her hysterectomy. She has not had any fevers. She is not having any other symptoms at this time. She did have similar symptoms for about 3 weeks this summer. She had several visits to the emergency department. She states that she had been told different things including that she had a kidney stone, she had a gastroenteritis during that time frame. She currently is denying other medical issues, she has had hysterectomy but denies other surgical intervention. She is allergic to Augmentin. Related Data Home Medications Medication Instructions Recorded Confirmed gabapentin [Neurontin] 300 mg PO BEDTIME 12/16/17 12/16/17 Previous Rx's Medication Instructions Recorded ondansetron [Zofran ODT] 4 mg PO BID-TID PRN #7 tab 12/16/17 promethazine 25 mg PO Q6H PRN #10 tab 12/17/17 Allergies Allergy/AdvReac Type Severity Reaction Status Date / Time amoxicillin [AMOXICILLIN] Allergy Severe THROAT Verified 02/17/18 09:28 CLOSED OFF, RESPIRATORY DISTRESS coffee (Coffea arabica) Allergy Severe RESPIRATORY Verified 02/17/18 09:28 [COFFEE (COFFEA ARABICA)] DISTRESS guaifenesin [From MUCINEX] Allergy Severe NAUSEA/EMES Verified 02/17/18 09:28 IS clavulanic acid Allergy Unknown Verified 02/17/18 09:28 [CLAVULANIC ACID] Review of Systems Review of Systems All systems reviewed & are unremarkable except as noted in HPI and below Constitutional Denies fever(s) and Reports headache(s) ENT Ears, Nose, Mouth, and Throat: Reports headache(s) Gastrointestinal Gastrointestinal: Reports abdominal pain, Denies melena, Denies hematochezia, Reports change in bowel habits, Denies constipation, Reports diarrhea, Reports nausea, Reports vomiting and Denies hematemesis Genitourinary Denies hematuria, Reports urinary frequency, Denies flank pain, Denies urinary incontinence, Denies urinary urgency and Denies other (flank) Musculoskeletal Denies back pain Neurologic Reports headache(s) PFSH Medical History Fibroids (Acute) Healthy adult (Acute) Surgical History Status post laparoscopic supracervical hysterectomy (07/09/17) Social History Smoking Status: Never smoker alcohol intake: current substance use type: does not use Exam Narrative Exam Narrative: GENERAL: Alert and oriented x three, well-nourished, well-appearing female in mild distress. HEENT: Head normocephalic, atraumatic, EOMI, pupils reactive, face symmetric, moist mucous membranes NECK: Supple, full range of motion CARDIOVASCULAR: Regular rate and rhythm without murmurs, rubs or gallops. RESPIRATORY: Breath sounds equal bilaterally, no wheezes rales or rhonchi. ABDOMEN: Soft, mild tenderness in the left lower quadrant, Hyperoactive bowel sounds all 4 quadrants. No guarding or rebound, rigidity, no mass : No CVA tenderness EXTREMITIES: Normal range of motion, no clubbing or edema. Neurovascularly intact NEUROLOGICAL: Cranial nerves II through XII grossly intact. Moving all extremities SKIN: Warm, dry, no petechiae, no rashes or lesions. Initial Vital Signs Initial Vital Signs: Vital Signs Temperature 98.3 F 02/17/18 09:28 Pulse Rate 58 L 02/17/18 09:28 Respiratory Rate 15 02/17/18 09:28 Blood Pressure 118/68 02/17/18 09:28 Pulse Oximetry 97 02/17/18 09:28 Course Orders Ordered: ED Orders 02/17/18 10:08 XR abdomen min 2V Stat 02/17/18 11:05 Complete Blood Count AUTO DIFF Stat Comprehensive Metabolic Panel Stat Lipase Stat Discontinued Medications Diphenhydramine HCl (Benadryl) 50 mg IV NOW ONE Stop: 02/17/18 10:09 Last Admin: 02/17/18 11:02 Dose: 50 mg Sodium Chloride (Normal Saline 0.9%) 1,000 mls @ 1,000 mls/hr IV BOLUS ONE Stop: 02/17/18 11:07 Last Infusion: 02/17/18 12:45 Dose: 0 mls/hr Admin: 02/17/18 10:59 Dose: 1,000 mls/hr Ketorolac Tromethamine (Toradol) 30 mg IV NOW ONE Stop: 02/17/18 10:09 Last Admin: 02/17/18 11:01 Dose: 30 mg Prochlorperazine (Compazine) 10 mg IV NOW ONE Stop: 02/17/18 10:09 Last Admin: 02/17/18 10:59 Dose: 10 mg Vital Signs - 8 hr 02/17/18 12:00 Pulse Rate 70 Blood Pressure [Left Arm] 114/62 Pulse Oximetry 95 MDM - Nausea/Vomiting/Diarrhea Lab Data Attestation: I reviewed the patient's lab results. Result diagrams: 02/17/18 11:05 02/17/18 11:05 Lab Results 02/17/18 02/17/18 Range/Units 11:05 11:05 WBC 9.3 (4.5-11.0) X10^3/uL RBC 4.49 (4.0-5.2) X10^6/uL Hgb 13.5 (12.0-16.0) g/dL Hct 39.4 (36-46) % MCV 87.8 (80-100) fL MCH 30.2 (26-34) PG MCHC 34.4 (30-36) % RDW 12.7 (11.6-14.8) % Plt Count 201 (150-400) X10^3/uL Neut % (Auto) 83.4 H (50-75) % Lymph % (Auto) 9.9 L (25-40) % Dawson % (Auto) 6.0 (3-14) % Eos % (Auto) 0.3 L (2-4) % Baso % (Auto) 0.4 (0-2) % Neut # (Auto) 7700 H (7472-5816) /uL Sodium 143 (137-145) mmol/L Potassium 4.6 (3.4-5.1) mmol/L Chloride 105 (98-107) mmol/L Carbon Dioxide 28 (22-32) mmol/L BUN 10 (7-17) mg/dL Creatinine 0.80 (0.52-1.04) mg/dL Estimated GFR > 60.0 (>60) mL/min BUN/Creatinine Ratio 12.5 (6-22) Glucose 90 (70-100) mg/dL Calcium 9.0 (8.4-10.2) mg/dL Total Bilirubin 0.5 (0.2-1.3) mg/dL AST 25 (14-36) IU/L ALT 25 (9-52) IU/L Alkaline Phosphatase 71 (38-126) U/L Total Protein 7.4 (6.3-8.2) g/dL Albumin 4.4 (3.5-5.0) g/dL Globulin 3.0 (1.7-4.1) g/dL Albumin/Globulin Ratio 1.5 (1.0-2.8) Lipase 31 (23-300) U/L Imaging Data Abdominal x-ray: Radiologist's impression: [place] [address] XRay Report Signed Patient: Betsy Austin LMR#: [id number] : 1980Acct:[id number] Age/Sex: 38 / FDate of Service: 02/17/18 Loc: ED Accession Number: [id number] Procedure: XR abdomen min 2V Ordering Provider: Larisa Salazar D.O. PROCEDURE: XR ABDOMEN MIN 2V INDICATIONS: vomiting/diarrhea TECHNIQUE: 2 views of the abdomen were acquired. COMPARISON: None. FINDINGS: Surgical changes and devices: None. Bowel: No pneumoperitoneum. The bowel gas pattern is normal. There is mild stool primarily within the right colon Soft tissues: No masses; visualized solid organ contours appear normal in size. No suspicious abdominal calcifications. Bones: No suspicious bony abnormalities. IMPRESSION: No evidence of bowel obstruction. Mild stool. Dictated by: Roque Sinclair M.D. on 02/17/2018 at 10:47 Approved by: Roque Sinclair M.D. on 02/17/2018 at 10:48 [facility] Narrative Medical decision making narrative: Recheck after medication, feeling much better. Patient's lab work and x-ray show no major changes. Patient has not had any further emesis here in the department. she has not given a urine but defers giving one here. She is aware that we have not ruled out uti but she states she is having no new symptoms. Discharge Plan Departure Patient Disposition: Home Clinical Impression: Nausea, vomiting, and diarrhea Discharge Date/Time: 02/17/18 12:47 Interventions: ED Discharge Assessment Last Done: 02/17/18 12:47 Instructions: DI for Vomiting -- Adult Activity Restrictions/Additional Instructions: Follow-up with your primary care physician if your symptoms are not completely resolving in the next 24-48 hours. Return to the emergency department for persistent fevers, persistent vomiting, black or bloody stools, new or severe abdominal pain. You may continue to use your antiemetic medication from home. Prescriptions: No Action gabapentin [Neurontin] 300 mg Capsule 300 mg PO BEDTIME RF: 0 ondansetron [Zofran ODT] 4 mg tablet,disintegrating 4 mg PO BID-TID PRN (Reason: nausea and vomiting) Qty: 7 RF: 0 promethazine 25 mg tablet 25 mg PO Q6H PRN (Reason: nausea and vomiting) Qty: 10 RF: 0
--- NOTE | 2018-02-17 10:14 | ED_ITS ---
HPI - Nausea/Vomiting/Diarrhea General Chief complaint: Abdominal Pain Stated complaint: THROWING FOR 12 HOURS Time Seen by Provider: 02/17/18 09:57 Source: patient Mode of arrival: ambulatory Limitations: no limitations History of Present Illness HPI Narrative: This is a 38-year-old female has come to the emergency department for complaint of vomiting and diarrhea for the past 12 hr. Patient states afterwards she started to have headache 2. Patient states that she was at a [employer] party last night, she had some alcohol up there is also a buffet and she thinks she may have had something that made her ill. Patient states that she is not really having any abdominal pain. She has been continuing to dry heave. She had Zofran ODT as well as promethazine at home she was unable to keep down and was not helpful for her symptoms. She denies any black or bloody stools with the diarrhea. She is not having any urinary urgency or dysuria. She is having some frequency but states that it has been occurring since she had her hysterectomy. She has not had any fevers. She is not having any other symptoms at this time. She did have similar symptoms for about 3 weeks this summer. She had several visits to the emergency department. She states that she had been told different things including that she had a kidney stone, she had a gastroenteritis during that time frame. She currently is denying other medical issues, she has had hysterectomy but denies other surgical intervention. She is allergic to Augmentin. Related Data Home Medications Medication Instructions Recorded Confirmed gabapentin [Neurontin] 300 mg PO BEDTIME 12/16/17 12/16/17 Previous Rx's Medication Instructions Recorded ondansetron [Zofran ODT] 4 mg PO BID-TID PRN #7 tab 12/16/17 promethazine 25 mg PO Q6H PRN #10 tab 12/17/17 Allergies Allergy/AdvReac Type Severity Reaction Status Date / Time amoxicillin [AMOXICILLIN] Allergy Severe THROAT Verified 02/17/18 09:28 CLOSED OFF, RESPIRATORY DISTRESS coffee (Coffea arabica) Allergy Severe RESPIRATORY Verified 02/17/18 09:28 [COFFEE (COFFEA ARABICA)] DISTRESS guaifenesin [From MUCINEX] Allergy Severe NAUSEA/EMES Verified 02/17/18 09:28 IS clavulanic acid Allergy Unknown Verified 02/17/18 09:28 [CLAVULANIC ACID] Review of Systems Review of Systems All systems reviewed & are unremarkable except as noted in HPI and below Constitutional Denies fever(s) and Reports headache(s) ENT Ears, Nose, Mouth, and Throat: Reports headache(s) Gastrointestinal Gastrointestinal: Reports abdominal pain, Denies melena, Denies hematochezia, Reports change in bowel habits, Denies constipation, Reports diarrhea, Reports nausea, Reports vomiting and Denies hematemesis Genitourinary Denies hematuria, Reports urinary frequency, Denies flank pain, Denies urinary incontinence, Denies urinary urgency and Denies other (flank) Musculoskeletal Denies back pain Neurologic Reports headache(s) PFSH Medical History Fibroids (Acute) Healthy adult (Acute) Surgical History Status post laparoscopic supracervical hysterectomy (07/09/17) Social History Smoking Status: Never smoker alcohol intake: current substance use type: does not use Exam Narrative Exam Narrative: GENERAL: Alert and oriented x three, well-nourished, well- appearing female in mild distress. HEENT: Head normocephalic, atraumatic, EOMI, pupils reactive, face symmetric, moist mucous membranes NECK: Supple, full range of motion CARDIOVASCULAR: Regular rate and rhythm without murmurs, rubs or gallops. RESPIRATORY: Breath sounds equal bilaterally, no wheezes rales or rhonchi. ABDOMEN: Soft, mild tenderness in the left lower quadrant, Hyperoactive bowel sounds all 4 quadrants. No guarding or rebound, rigidity, no mass : No CVA tenderness EXTREMITIES: Normal range of motion, no clubbing or edema. Neurovascularly intact NEUROLOGICAL: Cranial nerves II through XII grossly intact. Moving all extremities SKIN: Warm, dry, no petechiae, no rashes or lesions. Initial Vital Signs Initial Vital Signs: Vital Signs Temperature 98.3 F 02/17/18 09:28 Pulse Rate 58 L 02/17/18 09:28 Respiratory Rate 15 02/17/18 09:28 Blood Pressure 118/68 02/17/18 09:28 Pulse Oximetry 97 02/17/18 09:28 Course Orders Ordered: ED Orders 02/17/18 10:08 XR abdomen min 2V Stat 02/17/18 11:05 Complete Blood Count AUTO DIFF Stat Comprehensive Metabolic Panel Stat Lipase Stat Discontinued Medications Diphenhydramine HCl (Benadryl) 50 mg IV NOW ONE Stop: 02/17/18 10:09 Last Admin: 02/17/18 11:02 Dose: 50 mg Sodium Chloride (Normal Saline 0.9%) 1,000 mls @ 1,000 mls/hr IV BOLUS ONE Stop: 02/17/18 11:07 Last Infusion: 02/17/18 12:45 Dose: 0 mls/hr Admin: 02/17/18 10:59 Dose: 1,000 mls/hr Ketorolac Tromethamine (Toradol) 30 mg IV NOW ONE Stop: 02/17/18 10:09 Last Admin: 02/17/18 11:01 Dose: 30 mg Prochlorperazine (Compazine) 10 mg IV NOW ONE Stop: 02/17/18 10:09 Last Admin: 02/17/18 10:59 Dose: 10 mg Vital Signs - 8 hr 02/17/18 12:00 Pulse Rate 70 Blood Pressure [Left Arm] 114/62 Pulse Oximetry 95 MDM - Nausea/Vomiting/Diarrhea Lab Data Attestation: I reviewed the patient's lab results. Result diagrams: 02/17/18 11:05 02/17/18 11:05 Lab Results 02/17/18 02/17/18 Range/Units 11:05 11:05 WBC 9.3 (4.5-11.0) X10^3/uL RBC 4.49 (4.0-5.2) X10^6/uL Hgb 13.5 (12.0-16.0) g/dL Hct 39.4 (36-46) % MCV 87.8 (80-100) fL MCH 30.2 (26-34) PG MCHC 34.4 (30-36) % RDW 12.7 (11.6-14.8) % Plt Count 201 (150-400) X10^3/uL Neut % (Auto) 83.4 H (50-75) % Lymph % (Auto) 9.9 L (25-40) % O'Brien % (Auto) 6.0 (3-14) % Eos % (Auto) 0.3 L (2-4) % Baso % (Auto) 0.4 (0-2) % Neut # (Auto) 7700 H (1043-8827) /uL Sodium 143 (137-145) mmol/L Potassium 4.6 (3.4-5.1) mmol/L Chloride 105 (98-107) mmol/L Carbon Dioxide 28 (22-32) mmol/L BUN 10 (7-17) mg/dL Creatinine 0.80 (0.52-1.04) mg/dL Estimated GFR > 60.0 (>60) mL/min BUN/Creatinine Ratio 12.5 (6-22) Glucose 90 (70-100) mg/dL Calcium 9.0 (8.4-10.2) mg/dL Total Bilirubin 0.5 (0.2-1.3) mg/dL AST 25 (14-36) IU/L ALT 25 (9-52) IU/L Alkaline Phosphatase 71 (38-126) U/L Total Protein 7.4 (6.3-8.2) g/dL Albumin 4.4 (3.5-5.0) g/dL Globulin 3.0 (1.7-4.1) g/dL Albumin/Globulin Ratio 1.5 (1.0-2.8) Lipase 31 (23-300) U/L Imaging Data Abdominal x-ray: Radiologist's impression: [place] [address] XRay Report Signed Patient: Betsy Austin LMR#: [id number] : 1980Acct:[id number] Age/Sex: 38 / FDate of Service: 02/17/18 Loc: ED Accession Number: [id number] Procedure: XR abdomen min 2V Ordering Provider: Larisa Salazar D.O. PROCEDURE: XR ABDOMEN MIN 2V INDICATIONS: vomiting/diarrhea TECHNIQUE: 2 views of the abdomen were acquired. COMPARISON: None. FINDINGS: Surgical changes and devices: None. Bowel: No pneumoperitoneum. The bowel gas pattern is normal. There is mild stool primarily within the right colon Soft tissues: No masses; visualized solid organ contours appear normal in size. No suspicious abdominal calcifications. Bones: No suspicious bony abnormalities. IMPRESSION: No evidence of bowel obstruction. Mild stool. Dictated by: Roque Sinclair M.D. on 02/17/2018 at 10:47 Approved by: Roque Sinclair M.D. on 02/17/2018 at 10:48 [facility] Narrative Medical decision making narrative: Recheck after medication, feeling much better. Patient's lab work and x-ray show no major changes. Patient has not had any further emesis here in the department. she has not given a urine but defers giving one here. She is aware that we have not ruled out uti but she states she is having no new symptoms. Discharge Plan Departure Patient Disposition: Home Clinical Impression: Nausea, vomiting, and diarrhea Discharge Date/Time: 02/17/18 12:47 Interventions: ED Discharge Assessment Last Done: 02/17/18 12:47 Instructions: DI for Vomiting -- Adult Activity Restrictions/Additional Instructions: Follow-up with your primary care physician if your symptoms are not completely resolving in the next 24-48 hours. Return to the emergency department for persistent fevers, persistent vomiting, black or bloody stools, new or severe abdominal pain. You may continue to use your antiemetic medication from home. Prescriptions: No Action gabapentin [Neurontin] 300 mg Capsule 300 mg PO BEDTIME RF: 0 ondansetron [Zofran ODT] 4 mg tablet,disintegrating 4 mg PO BID-TID PRN (Reason: nausea and vomiting) Qty: 7 RF: 0 promethazine 25 mg tablet 25 mg PO Q6H PRN (Reason: nausea and vomiting) Qty: 10 RF: 0
[2018-02-17 10:59] VITALS: BP 104/46; PULSE 58
[2018-02-17] MEDS: SODIUM CHLORIDE 0.9% 1,000 ML 1000 ML IV (10:59)
[2018-02-17] MEDS: PROCHLORPERAZINE 10 MG/2 ML VIAL IV (10:59)
[2018-02-17] MEDS: KETOROLAC 60 MG/2 ML VIAL 30 MG IV (11:01)
[2018-02-17 11:02] VITALS: BP 104/46; PULSE 63; O2SAT 99
[2018-02-17] MEDS: diphenhydrAMINE 50 MG/ML VIAL IV (11:02)
[2018-02-17 11:23] LABS: Add Manual Diff / Slide Review NO; Basophils Percent Auto 0.4 % (0-2); Eosinophils Percent Auto 0.3 % (2-4); Hematocrit 39.4 % (36-46); Hemoglobin 13.5 g/dL (12.0-16.0); Lymphocytes Percent Auto 9.9 % (25-40); Mean Corpuscular HGB Conc 34.4 % (30-36); Mean Corpuscular Hemoglobin 30.2 PG (26-34); Mean Corpuscular Volume 87.8 fL (80-100); Neutrophils Absolute Auto 7700 /uL (3000-5900); Neutrophils Percent Auto 83.4 % (50-75); Platelet Count 201 X10^3/uL (150-400); Red Blood Cell Count 4.49 X10^6/uL (4.0-5.2); Red Cell Distribution Width 12.7 % (11.6-14.8); White Blood Cell Count 9.3 X10^3/uL (4.5-11.0)
[2018-02-17 11:34] LABS: Alanine Aminotransferase 25 IU/L (9-52); Albumin 4.4 g/dL (3.5-5.0); Albumin Globulin Ratio 1.5 (1.0-2.8); Alkaline Phosphatase 71 U/L (38-126); Aspartate Aminotransferase 25 IU/L (14-36); BUN Creatinine Ratio 12.5 (6-22); Bilirubin Total 0.5 mg/dL (0.2-1.3); Blood Urea Nitrogen 10 mg/dL (7-17); Carbon Dioxide 28 mmol/L (22-32); Chloride 105 mmol/L (98-107); Estimated Glomerular Filt Rate > 60.0 mL/min (>60); Glucose 90 mg/dL (70-100); HEMOLYSIS < 15 (0-50); Lipase 31 U/L (23-300); Potassium 4.6 mmol/L (3.4-5.1); Sodium 143 mmol/L (137-145); Total Protein 7.4 g/dL (6.3-8.2)
[2018-02-17 12:00] VITALS: BP 114/62; PULSE 70; O2SAT 95
== END 2018-02-17 12:47 | disposition home or self-care (01) ==
PROVIDERS: Emergency Provider Emergency Medicine; Family Provider Internal Medicine; PCP Internal Medicine
DX: R11.2 Nausea with vomiting, unspecified (principal); R19.7 Diarrhea, unspecified
CPT/HCPCS: 36415; 74019; 80053; 83690; 85025; 96361; 96374; 96375; 99283; 99284; J0780; J1200; J1885

== ENCOUNTER → 2018-03-12 13:26 | Outpatient (CLI) | payer OTHER, SELFPAY ==
[2018-03-12 14:27] LABS: HEMOLYSIS < 15 (0-50); Potassium 4.5 mmol/L (3.4-5.1)
== END ==
PROVIDERS: Family Provider Internal Medicine; PCP Internal Medicine; Visit Provider Physician Assistant Medical
DX: Z79.899 Other long term (current) drug therapy (principal)
CPT/HCPCS: 36415; 84132

== ENCOUNTER → 2018-09-10 15:50 | Outpatient (CLI) | payer OTHER, SELFPAY ==
[2018-09-10 16:12] LABS: Add Manual Diff / Slide Review NO; Basophils Absolute Auto 0 /uL (0-100); Basophils Percent Auto 0.7 % (0-2); Eosinophils Absolute Auto 100 /uL (0-450); Eosinophils Percent Auto 1.2 % (2-4); Hematocrit 43.1 % (36-46); Hemoglobin 14.7 g/dL (12.0-16.0); Lymphocytes Absolute Auto 800 /uL (1100-4500); Lymphocytes Percent Auto 16.2 % (25-40); Mean Corpuscular Hemoglobin 29.3 PG (26-34); Monocytes Absolute Auto 400 /uL (0-900); Monocytes Percent Auto 7.5 % (3-14); Neutrophils Absolute Auto 3900 /uL (1500-7000); Neutrophils Percent Auto 74.4 % (50-75); Platelet Count 208 X10^3/uL (150-400); Red Blood Cell Count 5.01 X10^6/uL (4.0-5.2); Red Cell Distribution Width 12.9 % (11.6-14.8); White Blood Cell Count 5.2 X10^3/uL (4.5-11.0)
[2018-09-10 16:22] LABS: HEMOLYSIS < 15 (0-50); Iron 31 ug/dL (37-170)
[2018-09-10 16:26] LABS: C-Reactive Protein Quant 1.4 mg/dL (<1.0)
[2018-09-10 16:28] LABS: Rheumatoid Factor < 8.6 IU/mL (<12.0)
[2018-09-10 16:33] LABS: Percent Iron Saturation 13 % (15-50); Total Iron Binding Capacity 247 ug/dL (265-497); Transferrin 192 mg/dL (206-381)
[2018-09-10 16:54] LABS: Thyroid Stimulating Hormone 1.08 uIU/mL (0.47-4.68)
[2018-09-10 17:13] LABS: Vitamin B12 594 pg/mL (239-931)
[2018-09-10 17:25] LABS: Erythrocyte Sedimentation Rate 4 MM/HR (0-20)
[2018-09-14 18:34] LABS: Cardiolipin Ab IgA < 11 APL; Cardiolipin Ab IgG < 14 GPL; Cardiolipin Ab IgM < 12 MPL; PTT-LA Screen 35 seconds (< OR = 40); dRVVT Screen 56 seconds (< OR = 45)
== END ==
PROVIDERS: Family Provider Internal Medicine; PCP Internal Medicine; Visit Provider Family Medicine
DX: R51 Headache (principal); M32.9 Systemic lupus erythematosus, unspecified
CPT/HCPCS: 36415; 82607; 83540; 83550; 84443; 85025; 85597; 85613; 85651; 85730; 86140; 86147; 86430

== ENCOUNTER → 2018-09-14 16:13 | Outpatient (CLI) | payer OTHER, SELFPAY ==
[2018-09-14 17:08] LABS: Clostridium Difficile Tox PCR Negative for C. diff
== END ==
PROVIDERS: Family Provider Internal Medicine; PCP Internal Medicine; Visit Provider Physician Assistant
DX: R19.7 Diarrhea, unspecified (principal)
CPT/HCPCS: 87045; 87177; 87493; 87899

== ENCOUNTER → 2018-09-18 14:20 | Outpatient (CLI) | payer OTHER, SELFPAY ==
--- NOTE | 2018-09-18 14:23 | DI.MRI.S_ITS ---
PROCEDURE: MR BRAIN (IAC) WWO CON INDICATIONS: headaches + history of lupus TECHNIQUE: Noncontrast sagittal T1 spin echo, axial FLAIR, axial gradient echo, axial diffusion and ADC through the brain. Axial thin-slice 3D CISS, coronal TruFISP, axial T1 spin echo with fat saturation through the internal auditory canals. After the administration of contrast, thin slice axial and coronal T1 spin echo with fat saturation through the internal auditory canals, and axial T1 spin echo with fat saturation through the brain. COMPARISON: None. FINDINGS: Image quality: Excellent. Cerebellopontine angles: No cerebellopontine angle masses. Inner ear structures appear normally formed. No suspicious enhancement in the internal auditory canal or along the course of the 7th cranial nerve. CSF spaces: Ventricles are normal in size and shape. No extra-axial fluid collections. Basal cisterns are patent. Brain: No intracranial bleeds or mass effects. Frazier-white matter interface is intact. No abnormal intracranial enhancement. Diffusion weighted images demonstrate no acute ischemic insults. Brainstem appears normal. Normal intravascular flow voids are present. Skull and face: Calvarial marrow signal is normal. Orbits appear normal. Sinuses: Sinuses and mastoids are clear. IMPRESSION: Normal appearing brain parenchyma, no evidence of prior injury from vasculitis or prior stroke. There is normal enhancement of the vasculature of the brain parenchyma and skull base. No mass lesion is found. No areas of hemosiderin deposition are identified. A source of persistent headaches is not found. Dictated by: Laic Bach M.D. on 09/18/2018 at 16:26 Approved by: Laci Bach M.D. on 09/18/2018 at 16:27
== END ==
PROVIDERS: PCP Internal Medicine; Visit Provider Family Medicine
DX: R51 Headache (principal)
CPT/HCPCS: 70553; A9579

== ENCOUNTER → 2019-02-21 13:33 | Outpatient (CLI) | payer OTHER, SELFPAY ==
[2019-02-21 15:05] LABS: BUN Creatinine Ratio 12.5 (6-22); Blood Urea Nitrogen 10 mg/dL (7-17); Calcium 9.4 mg/dL (8.4-10.2); Carbon Dioxide 27 mmol/L (22-32); Chloride 103 mmol/L (98-107); Cholesterol 216 mg/dL (140-199); Estimated Glomerular Filt Rate > 60.0 mL/min (>60); Glucose 83 mg/dL (70-100); HDL Cholesterol 70 mg/dL (40-60); HEMOLYSIS < 15 (0-50); LDL Cholesterol Calculated 130 mg/dL (<100); Potassium 4.6 mmol/L (3.4-5.1); Sodium 139 mmol/L (137-145); Triglycerides 80 mg/dL (35-150)
[2019-02-21 15:38] LABS: TSH w/ Reflex to FT4 1.39 uIU/mL (0.47-4.68)
[2019-02-21 15:54] LABS: Vitamin B12 441 pg/mL (239-931)
== END ==
PROVIDERS: PCP Internal Medicine; Visit Provider Internal Medicine
DX: Z00.00 Encounter for general adult medical examination without abnormal findings (principal); R53.83 Other fatigue; D51.9 Vitamin B12 deficiency anemia, unspecified
CPT/HCPCS: 36415; 80048; 80061; 82607; 84443

== ENCOUNTER → 2019-07-22 11:31 | Outpatient (CLI) | payer OTHER, SELFPAY ==
--- NOTE | 2019-07-22 | DI.CT.S_ITS ---
PROCEDURE: CT ABDOMEN W CON INDICATIONS: Epigastric pain TECHNIQUE: After the administration of oral and intravenous contrast, 5 mm thick sections acquired from the diaphragms to the iliac crests. 5 mm thick coronal and sagittal reformats were acquired. For radiation dose reduction, the following was used: automated exposure control, adjustment of mA and/or kV according to patient size. COMPARISON: [facility], CT, CT ABDOMEN PELVIS W CON, 01/02/2018, 10:53. FINDINGS: Image quality: Excellent. Lung bases: Lung bases are clear. Heart size is normal. Solid organs: Liver is normal in size and enhancement. Diffuse fatty infiltration. No focal small cysts are scattered throughout the liver. Gallbladder wall is prominent. Subtle density noted at the gallbladder neck which may represent small stone. Biliary system is non dilated. Pancreas enhances normally. Spleen is normal in size and enhancement. No adrenal nodules. Kidneys are normal in size, without hydronephrosis. Peritoneum and bowel: Contrast enhanced bowel loops appear normal in caliber. No free fluid or air. Nodes and vessels: No retroperitoneal or mesenteric adenopathy by size criteria. Aorta and inferior vena cava are normal in size. Bones: No suspicious bony lesions. No vertebral body compression fractures. Miscellaneous: No ventral hernias. IMPRESSION: 1. Prominent gallbladder wall and possible stone in the gallbladder neck. Recommend abdominal ultrasound for further characterization. 2. Hepatic steatosis. 3. Hepatic cysts stable compared to prior exams.. Dictated by: Sylvia De Los Santos MD, PhD on 07/22/2019 at 16:16 Approved by: Sylvia De Los Santos MD, PhD on 07/22/2019 at 16:20
== END ==
PROVIDERS: PCP Internal Medicine; Referring Provider Internal Medicine; Visit Provider Internal Medicine
DX: R10.13 Epigastric pain (principal); K76.0 Fatty (change of) liver, not elsewhere classified; K76.89 Other specified diseases of liver
CPT/HCPCS: 74160; Q9967

== ENCOUNTER → 2019-07-31 11:42 | Outpatient (CLI) | payer OTHER, SELFPAY ==
[2019-07-31 12:15] LABS: Add Manual Diff / Slide Review NO; Basophils Absolute Auto 0 /uL (0-100); Basophils Percent Auto 0.4 % (0-2); Eosinophils Absolute Auto 100 /uL (0-450); Hematocrit 41.3 % (36-46); Hemoglobin 14.1 g/dL (12.0-16.0); Lymphocytes Absolute Auto 1400 /uL (1100-4500); Lymphocytes Percent Auto 20.9 % (25-40); Mean Corpuscular HGB Conc 34.1 % (30-36); Mean Corpuscular Hemoglobin 29.9 PG (26-34); Mean Corpuscular Volume 87.6 fL (80-100); Monocytes Absolute Auto 500 /uL (0-900); Monocytes Percent Auto 6.9 % (3-14); Neutrophils Absolute Auto 4900 /uL (1500-7000); Neutrophils Percent Auto 70.8 % (50-75); Platelet Count 241 X10^3/uL (150-400); Red Blood Cell Count 4.71 X10^6/uL (4.0-5.2); Red Cell Distribution Width 12.6 % (11.6-14.8); White Blood Cell Count 6.9 X10^3/uL (4.5-11.0)
[2019-07-31 12:24] LABS: Alanine Aminotransferase 12 IU/L (<35); Albumin 4.2 g/dL (3.5-5.0); Albumin Globulin Ratio 1.3 (1.0-2.8); Alkaline Phosphatase 61 U/L (38-126); Amylase 67 U/L (30-110); Aspartate Aminotransferase 16 IU/L (14-36); BUN Creatinine Ratio 12.7 (6-22); Bilirubin Total 0.8 mg/dL (0.2-1.3); Blood Urea Nitrogen 10 mg/dL (7-17); Carbon Dioxide 24 mmol/L (22-32); Chloride 106 mmol/L (98-107); Estimated Glomerular Filt Rate > 60.0 mL/min (>60); Globulin 3.2 g/dL (1.7-4.1); Glucose 94 mg/dL (70-100); HEMOLYSIS < 15 (0-50); Lipase 30 U/L (23-300); Potassium 4.2 mmol/L (3.4-5.1); Sodium 139 mmol/L (137-145); Total Protein 7.4 g/dL (6.3-8.2)
== END ==
PROVIDERS: PCP Internal Medicine; Referring Provider Internal Medicine; Visit Provider Internal Medicine
DX: R10.13 Epigastric pain (principal)
CPT/HCPCS: 36415; 80053; 82150; 83690; 85025

== ENCOUNTER → 2019-08-06 14:05 | Outpatient (CLI) | payer OTHER, SELFPAY ==
--- NOTE | 2019-08-06 14:06 | DI.US.S_ITS ---
PROCEDURE: US ABDOMEN COMPLETE INDICATIONS: UPPER ABD/RUQ PAIN, NAUSEA ?STONE/GBD WALL THICKENING TECHNIQUE: Real-time scanning was performed of the abdominal and retroperitoneal organs, with image documentation. COMPARISON: [facility], CT, CT ABDOMEN W CON, 07/22/2019, 12:55. [facility], US, ABDOMEN COMPLETE, 12/28/2015, 16:03. FINDINGS: Liver: Liver is normal in size and homogeneous in echotexture. Note is made of a left hepatic cyst measuring up to 1.3 x 1.1 x 1.3 cm. Note also is made of a 1.0 x 1.2 cm and a 1.1 cm right hepatic cyst. No solid mass lesion is found. Gallbladder: The gallbladder appears normal. Biliary ducts: Intrahepatic bile ducts are non-dilated. Extrahepatic bile duct caliber measures 3.8 mm. Normal is 6-7 mm or less in diameter, or 10 mm or less post-cholecystectomy. Pancreas: Visualized portions of the pancreas are sonographically normal. Spleen: Spleen is normal in size and homogeneous in echotexture. Kidneys: Kidneys are normal in size and echotexture. Right kidney measures 9.5 cm long; left kidney measures 11.4 cm long. No hydronephrosis or nephrolithiasis. No solid masses. Aorta: Visualized aorta is normal in caliber at less than 3 cm. Iliacs: Proximal common iliac arteries are normal in caliber at less than 2.5 cm. IVC: Intrahepatic inferior vena cava is patent. Miscellaneous: No free abdominal fluid. IMPRESSION: Several simple appearing small liver cysts are present. No hepatic mass lesion or evidence of biliary distention is found. Bile ducts are normal in caliber, gallbladder appears normal. Source of current symptoms is not seen. Dictated by: Laci Bach M.D. on 08/06/2019 at 16:28 Approved by: Laci Bach M.D. on 08/06/2019 at 16:30
== END ==
PROVIDERS: PCP Internal Medicine; Referring Provider Specialist; Visit Provider Specialist
DX: R10.11 Right upper quadrant pain (principal); R11.2 Nausea with vomiting, unspecified; K76.89 Other specified diseases of liver; K80.20 Calculus of gallbladder without cholecystitis without obstruction
CPT/HCPCS: 76700; 99213

== ENCOUNTER → 2019-08-21 09:13 | Outpatient (CLI) | payer OTHER, SELFPAY ==
--- NOTE | 2019-08-21 09:14 | DI.NM.S_ITS ---
PROCEDURE: NM HIDA WITH CCK PHARMACEUTICAL: 5.3 mCi Tc-99m mebrofenin IV; 2.1 mcg CCK IV. INDICATIONS: post parandial upper abd pain/nausea. neg CT and U/S TECHNIQUE: Following intravenous administration of Tc-99m mebrofenin, sequential anterior abdominal images were obtained. To evaluate the contractile response of the gallbladder in response to Cholecystokinin (CCK), sincalide (0.02 ?g/kg) was administered by slow intravenous infusion approximately 60 minutes after the administration of the radiopharmaceutical. Sequential imaging was continued for 30 minutes after the start of CCK infusion. Gallbladder ejection fraction was calculated. COMPARISON: [facility], CT, CT ABDOMEN PELVIS W CON, 01/02/2018, 10:53. [facility], CT, CT ABDOMEN W CON, 07/22/2019, 12:55. [facility], US, US ABDOMEN COMPLETE, 08/06/2019, 14:20. FINDINGS: Biliary scan: There is normal tracer uptake and excretion by the liver. There is normal visualization of the intrahepatic ducts, common bile duct, and gallbladder. There is normal tracer transit into the duodenum. CCK stimulation: There is poor contractile response of the gallbladder to CCK infusion. The calculated gallbladder ejection fraction is 11%; normal values are above 35%. IMPRESSION: 1. Normal filling of gallbladder. No evidence for acute cholecystitis. 2. Poor contractile response of gallbladder to CCK stimulation. This finding is consistent with dilated dyskinesis. Dictated by: Tre Verdugo M.D. on 08/21/2019 at 11:56 Approved by: Tre Verdugo M.D. on 08/21/2019 at 11:58
== END ==
PROVIDERS: PCP Internal Medicine; Referring Provider Specialist; Visit Provider Specialist
DX: R10.10 Upper abdominal pain, unspecified (principal); R11.0 Nausea
CPT/HCPCS: 78227; A9537; J2805

== ENCOUNTER → 2019-09-07 09:25 | Outpatient (CLI) | payer OTHER, SELFPAY ==
[2019-09-08 01:51] LABS: COVID19 Sendout Not Detected (Not Detect)
== END ==
PROVIDERS: PCP Internal Medicine; Visit Provider Registered Nurse
DX: Z01.818 Encounter for other preprocedural examination (principal); Z11.59 Encounter for screening for other viral diseases
CPT/HCPCS: 87635

== ENCOUNTER 2019-09-12 06:40 | Observation (INO) | payer OTHER, SELFPAY ==
[2019-09-02 11:45] VITALS: BMI 33.2
[2019-09-11] VITALS (34 sets, daily range): BP systolic 100–145; BP diastolic 55–105; PULSE 59–650; RESP 9–109; TEMP 35.9–37; O2SAT 90–100; BMI 33.2
--- NOTE | 2019-09-11 | PATH_ITS ---
[facility] Accession Number: [id number] . 01 Material submitted: . gallbladder - GALLBLADDER . 02 Diagnosis: Gallbladder, Cholecystectomy: Chronic cholecystitis. No calculi identified. Negative for dysplasia and malignancy. [facility] 09/16/2019 1430 Local . 02 Electronically signed: . Peggy Helm MD, Pathologist NPI- [id number] . 01 Gross description: . Received in formalin, labeled with the patient's name and gallbladder, is a 6.5 x 2.0 x 1.5 cm, previously disrupted gallbladder with clip at patent cystic duct (duct inked black), no calculi within specimen or container, and is lined with green velvety mucosa, wall thickness up to 0.2 cm. Sales And Marketing Analyst sections are submitted. . Summary of sections: A1. Gallbladder and shaved cystic duct margin, five pieces. ([id number]) /MRV 09/12/2019 1119 Local . 02 Pathologist provided ICD-10: K22.4 . 02 CPT . 886999 Performed at: 01 [facility] [address] [facility], [place], [place] [id number] MD Lance Mejia MD Phone: [phone] Performed at: 02 [facility] [address] [place], [place] [id number] MD Peggy Helm MD Phone: [phone]
--- NOTE | 2019-09-11 07:43 | SUR.PREOP ---
Provided patient with cell phone and ear buds. Updated patient that there was a delay in surgery due to a previous surgery. Verbalizes understanding.
--- NOTE | 2019-09-11 08:09 | P.HP_ITS ---
History of Present Illness History of Present Illness Date Patient Seen: 09/11/19 Time Patient Seen: 07:30 Chief complaint: [id number] Narrative: The patient is a woman with intermittent right upper quadrant pain and persistent left lower quadrant pain. Pain in her right upper quadrant is usually after eating and it does not seem to matter what she eats. She has also had some nausea. She has undergone an evaluation including a CT scan, ultrasound, and a CCK HIDA scan. I was unimpressed by the CT findings in the ultrasound did not show stones or gallbladder wall thickening. However, CCK HIDA showed severe dyskinesia with an 11% ejection fraction. Because this pain is persistent and intermittent accompanied by food intake I have talked to her and she is opted to undergo removal of her gallbladder. While ice expect her to have some improvement interrupted upper quadrant pain this will probably not affect her left lower quadrant symptoms. Patient History Family & Social History Social History: household members spouse Tobacco & Substance use: Smoking Status Never smoker alcohol intake current alcohol intake frequency 0-2 drinks per day Substance Use Type does not use Meds Home Medications and Allergies Home Medications Medication Instructions Recorded Confirmed Type gabapentin [Neurontin] 300 mg PO BEDTIME 12/16/17 09/11/19 History omeprazole 40 mg capsule,delayed 40 mg PO DAILY 10/21/18 09/11/19 History release rizatriptan 10 mg tablet See Rx Instructions PO .COMPLEX 11/29/18 09/11/19 Rx #10 tab verapamil 40 mg tablet 40 mg PO TID #90 tab 05/01/19 08/06/19 Rx Allergies Allergy/AdvReac Type Severity Reaction Status Date / Time amoxicillin [AMOXICILLIN] Allergy Severe THROAT Verified 09/11/19 07:06 CLOSED OFF, RESPIRATORY DISTRESS coffee (Coffea arabica) Allergy Severe RESPIRATORY Verified 09/11/19 07:06 [COFFEE (COFFEA ARABICA)] DISTRESS guaifenesin [From MUCINEX] Allergy Severe NAUSEA/EMES Verified 09/11/19 07:06 IS clavulanic acid Allergy Unknown Verified 09/11/19 07:06 [CLAVULANIC ACID] levofloxacin AdvReac Vomiting Verified 09/11/19 07:06 Review of Systems Review of Systems Narrative: Patient has no chest pain or heart problems. She has some reflux issues. Patient denies black or bloody bowel movements. She has had a hysterectomy and has had no children. No seizures or blackouts. Exam Vital Signs (past 8 hours): - 09/11/19 07:09 Temperature 96.7 F L Pulse Rate 59 L Respiratory Rate 15 Blood Pressure 109/77 Pulse Oximetry 99 Oxygen Delivery Method Room Air Narrative Exam Narrative: Co Operative no apparent distress. Pleasant. Eyes are nonicteric. Lungs are clear to auscultation no rales or rhonchi. Heart regular rate and rhythm without murmur gallop. Abdomen is soft without hernia of the abdominal wall appreciated. She has scars from her laparoscopic supracervical hysterectomy noted. No tenderness in the right upper quadrant is appreciated today that she has some mild tenderness in left lower quadrant. No palpable masses. The patient is alert and oriented x3. Speech rate and content are jonna ropriate. Assessment & Plan Assessment & Plan narrative: A discussed the procedure with the patient and the rationale for it. Risks of bleeding, infection, injury to internal organs or ducts which would require major operation to repair, hernia, bile leakage all discussed with her. Possibility of a postop ERCP discussed. All questions were answered. She appears to understand and wishes to proceed. I told her that I would expect improvement in her right upper quadrant pain but not in her left lower quadrant pain after this procedure. COVID-19 COVID-19 status: Negative Result date/Date tested (Pos, Neg/Pending): 09/07/19
--- NOTE | 2019-09-11 08:48 | PM.PREOP ---
Pre-operative Note COVID-19 COVID-19 status: Negative Result date/Date tested (Pos, Neg/Pending): 09/07/19 Interval Note History & Physical reviewed/Exam performed by Physician: Yes Changes to H&P: No
[2019-09-11] MEDS: LACTATED RINGERS 1,000 ML 100 ML IV ×2 (08:59→11:47)
[2019-09-11] MEDS: CLINDAMYCIN 900 MG/50 ML PIGGYBACK 50 MG IV (10:06)
--- NOTE | 2019-09-11 10:38 | SUR.OPER ---
Supine on padded OR bed, head on pillow, safety belt at thigh, left arm padded and tucked at side. Right arm secured on padded arm oard <90 degrees abduction. Legs uncrossed. Padded footboard in place. Tape over blanket to secure lower legs.
[2019-09-11] MEDS: BUPIVACAINE 0.5% (PF) VIAL 30 ML INJ (10:47)
[2019-09-11] MEDS: ACETAMINOPHEN IV 1,000 MG/100 ML VIAL 400 MG IV (10:50)
--- NOTE | 2019-09-11 11:17 | PM.OP.1 ---
Operative Date/Time/Diagnoses Date of procedure: 09/11/19 Time of procedure: 11:17 Pre-op diagnosis: Gallbladder dyskinesia with right upper quadrant pain and nausea after eating Post-op diagnosis: same Procedure & Clinicians Procedure: Laparoscopic cholecystectomy Same procedure as scheduled: Yes Indications: Right upper quadrant pain associated with eating and an abnormal CCK HIDA scan with 11% ejection fraction normal being 35% or above Surgeon: Jw Boone Click Yes if Unassisted: Yes Anesthesia Type: General Operative Notes Findings: No evidence of stones on examination of the contents of the gallbladder Closure Type: primary Specimen(s): other (Gallbladder) Prosthetic devices, grafts, tissues, transplants, or devices: None Estimated Blood Loss (mL): 5 Blood products transfused: none Procedure in detail: The patient was placed supine on the operating room table and underwent general endotracheal anesthesia. The patient was prepped and draped in the usual fashion. Local anesthetic was infiltrated near the umbilicus and curvilinear incision made and carried down through fascia into the peritoneal cavity. Stay sutures of 0 Vicryl were placed in the fascia. A 12 mm port was placed. The abdomen was insufflated. The patient was repositioned. Local anesthetic was infiltrated in 3 areas under the right costal margin and 3D incisions made followed by placing 3 5 mm ports under direct laparoscopic camera vision internally. The gallbladder was grasped and elevated. Dissection was begun near its end. A ductal structure and 2 small vascular structures were identified and from surrounding structures. All went directly to the gallbladder. 1 May have been venous in nature. Three clips were placed across the structure in a divert I did leaving 2 in patient on each structure. The gallbladder was then dissected from its bed in the liver using cautery. There was no spillage of material. It was detached and removed through the umbilical port. the port sites were all irrigated. The stay sutures at the umbilicus were elevated. A 2 0 PDS suture was placed between them. The Vicryl and PDS sutures were then tied. The skin in all areas was closed with interrupted 4 0 Vicryl subcuticular stitches. Steri-Strips and Mastisol were applied. Band-Aids were placed and the patient was awakened, extubated and taken to the recovery area in good condition. The gallbladder was opened and found to have no stones, as expected. Complications: none Post-operative Condition: stable Disposition: PACU Plan for aftercare: Follow-up in the office
[2019-09-11] MEDS: fentaNYL 100 MCG/2 ML INJ IV ×3 (11:29→12:17)
[2019-09-11] MEDS: LORazepam 2 MG/ML INJ ×3 (11:35→12:36)
[2019-09-11] MEDS: ONDANSETRON 4 MG/2 ML INJ IV (11:58)
--- NOTE | 2019-09-11 12:03 | SUR.PHASEI ---
arrived in PACU arousing, Dr. Shah stated that she would need pain med, pt became active, thrashing, did not open eyes as directed, no response to verbal commands. Rx given per Dr. Shah. 3-4 RN's, GENERATING PLANT SUPERINTENDENT, and Dr. Shah holding patient so that she would not hurt herself, pillows place between patient and siderails to prevent her from hurting herself. rx repeated and given as directed by Dr. shah -- see JUN. Patient calmed down after 2nd dose of fentanyl and lorazepam. 1142 Became restless again, 2nd dose of lorazepam given per Dr. shah. 1145 Pt resting calmly, resp unlabored 1204 Nausea subsided after Rx with brief episode at this time. Then returned to sleep. Unable to maintain O2 sat after RA trail (90%0; returned to 2LNP
--- NOTE | 2019-09-11 12:20 | SUR.PHASEI ---
Addendum entered by Cristina Cannon R.N. 09/11/19 12:37: Dr. Tran to bedside approx after episode ended, no orders given. Episode lasted 1 1/2 - 2 min. Original Note: 1211 Appeared to have a seizure, thrashing, arching back, eyes rolling back in head, holding breath; placed on L2 8l simple mask. episode lasted 1/12 - [address] Boone notified, came in to see patient. Unable to reach Dr. shah presently 1222 Dr. Boone stated that an interest will come see the patient. he stated that he reports that she has been having auras at home and has maintained consciousness and that eyes did not roll back. 1223 patient resting calmly, resp unlabored, skin warm and dry, responsive to voice. YOUTH DIRECTOR present, talking to patient and ensuring her safety.
--- NOTE | 2019-09-11 12:39 | SUR.PHASEI ---
Dr Tuttle here, witnessed patient beginning to have hand twitching, then legs, appeared to be having another seizure. Lorazepam ordered and given; stated that looked like a seizure. Pt able to respond to voice, talk with the dr. he will consult a nuerologist.
--- NOTE | 2019-09-11 12:49 | P.CONS_ITS ---
History of Present Illness Consult details Date Patient Seen: 09/11/19 Time Patient Seen: 12:49 Chief complaint: [id number] Reason for consult: seizure post operative Requesting provider: Jw Boone Narrative: Betsy Austin is a 39-year-old female with past medical history of lupus, prior seizures (age 14, stopped medications a few years ago), migraines who after laparoscopic cholecystectomy suffered a seizure lasting for couple of minutes. Patient was described by nursing staff as arching her back, flexing at the arms, and her eyes rolled back. She further was not breathing and was not responding. This lasted for about a minute and a half and then resolved without any intervening medications. She may have had a short 2nd episode, but this resolved within a few seconds. When I evaluated the patient she had another episode where she was arching her back, eyes closed, not following commands, rotating her neck to the left and flexing her arms and legs rhythmically. Quickly was able to give 1.5 mg of ativan and she woke back up within 10 seconds. Afterwards she was sleepy but alert, following commands. She complained of back pain but no headache, vision changes, chest pain, palpitations. In the OR patient received sevofluorane, propofol bolus and infusion, midazolam, fentanyl, sux, 10 of dexamethasone, reglan, 1g of IV tylenol, and 30 of toradol. As discussed below did discuss with neurologist at [facility], who recommended observation overnight and to load with Keppra. She should continue 500 mg of Keppra b.i.d. and follow-up as an outpatient with neurologist. She can be discharged in the morning if there are no further events overnight. At this time he did not believe she required an EEG. Meds Home Medications and Allergies Home Medications Medication Instructions Recorded Confirmed Type gabapentin [Neurontin] 300 mg PO BEDTIME 12/16/17 09/11/19 History omeprazole 40 mg capsule,delayed 40 mg PO DAILY 10/21/18 09/11/19 History release rizatriptan 10 mg tablet See Rx Instructions PO .COMPLEX 11/29/18 09/11/19 Rx #10 tab verapamil 40 mg tablet 40 mg PO TID #90 tab 05/01/19 08/06/19 Rx hydrocodone-acetaminophen [[place]] See Rx Instructions .ROUTE 09/11/19 Rx .COMPLEX PRN #20 tab Allergies Allergy/AdvReac Type Severity Reaction Status Date / Time amoxicillin [AMOXICILLIN] Allergy Severe THROAT Verified 09/11/19 07:06 CLOSED OFF, RESPIRATORY DISTRESS coffee (Coffea arabica) Allergy Severe RESPIRATORY Verified 09/11/19 07:06 [COFFEE (COFFEA ARABICA)] DISTRESS guaifenesin [From MUCINEX] Allergy Severe NAUSEA/EMES Verified 09/11/19 07:06 IS clavulanic acid Allergy Unknown Verified 09/11/19 07:06 [CLAVULANIC ACID] levofloxacin AdvReac Vomiting Verified 09/11/19 07:06 Review of Systems Review of Systems Narrative: All other systems reviewed with the patient and are negative unless otherwise stated. Exam Vital Signs (past 8 hours): - 09/11/19 07:09 09/11/19 11:29 09/11/19 11:37 Temperature 96.7 F L 98.1 F Pulse Rate 59 L 86 70 Respiratory Rate 15 16 11 L Blood Pressure 109/77 136/80 136/81 Pulse Oximetry 99 91 98 09/11/19 11:46 09/11/19 11:47 09/11/19 11:52 Temperature Pulse Rate 650 H 59 L 61 Respiratory Rate 20 11 L 11 L Blood Pressure 142/86 H 133/83 119/81 Pulse Oximetry 90 L 95 96 09/11/19 11:57 09/11/19 12:02 09/11/19 12:07 Temperature Pulse Rate 70 74 73 Respiratory Rate 12 18 19 Blood Pressure 117/76 111/78 111/72 Pulse Oximetry 98 94 99 09/11/19 12:12 09/11/19 12:17 09/11/19 12:22 Temperature Pulse Rate 73 70 70 Respiratory Rate 19 9 L 13 Blood Pressure 121/61 125/81 118/75 Pulse Oximetry 99 100 99 09/11/19 12:27 09/11/19 12:32 Temperature Pulse Rate 65 66 Respiratory Rate 13 109 H Blood Pressure 115/77 112/74 Pulse Oximetry 98 97 Oxygen Delivery Method Nasal Cannula Oxygen Flow Rate 2 Narrative Exam Narrative: GENERAL APPEARANCE: Well developed, well nourished, female appears comfortable after ativan. She remains quite sleepy. SKIN: Inspection of the skin reveals no rashes, ulcerations or petechiae. HEENT: Normocephalic atraumatic, extraocular muscles are intact, oropharynx is clear and mucous membranes are moist, neck is supple without adenopathy. Pupils normal NECK: Supple and symmetric. There was no thyroid enlargement, and no tenderness, or masses were felt. CHEST: Normal AP diameter and normal contour without any kyphoscoliosis. LUNGS: Auscultation of the lungs revealed no wheezes, rhonchi, or rales. CARDIOVASCULAR: There was a regular rate and rhythm without any murmurs, gallops, rubs. Peripheral pulses were 2+ and symmetric. ABDOMEN: Soft and nontender with normal bowel sounds. No ascites was noted. MUSCULOSKELETAL: There was no tenderness or effusions noted. Muscle strength and tone were normal. EXTREMITIES: No cyanosis, clubbing or edema. NEUROLOGIC: Alert and oriented x3. Follows commands and answers questions appropriately. Drowsy and falls asleep easily, but No focal neurological deficits. Assessment & Plan Assessment & Plan narrative: Betsy Austin is a 39-year-old female with past medical history of lupus, prior seizures (age 14, stopped medications a few years ago), migraines who after laparoscopic cholecystectomy suffered at least two seizures lasting for couple of minutes post operatively. Did discuss with neurology consultation at [facility] who recommended Keppra loading given history of seizure and to continue keppra 500 mg BID and have her follow up with outpatient neurology. He did recommend overnight observation and discharge in the morning if there are no further events. 1. Seizure - patient with reported history of seizures at age 14 and was on anti- epileptics until 10 years ago. No seizure episodes until now. - this may represent a reaction to anesthesia medication and a reduction in her seizure threshold. - Non focal exam findings, but will order CT head to confirm no abnormalities. - Ordered for 1000 mg IV keppra x1, continue 500 mg BID as an outpatient. Will require outpatient neurology follow up and seizure precautions, including no driving for 6 months and no tub baths. - willl obtain basic laboratory evaluation upon arrival to floor to confirm no electrolyte abnormalities. Medicine will continue to follow this patient. If patient continues to suffer seizures will work to have patient transferred to a center with neurology.
--- NOTE | 2019-09-11 12:56 | SUR.PHASEI ---
reported off to Annabel Ayala RN for break relief. Pt sleeping. Awaiting further direction from doctors.
--- NOTE | 2019-09-11 13:05 | SUR.PHASEI ---
Assumed care from Nicolette Velazquez RN. Patient resting quietly in stretcher with eyes closed. RR even and unlabored. No distress noted. VSS. No seizure activity noted at this time.
--- NOTE | 2019-09-11 13:17 | SUR.PHASEI ---
resumed care, patient sleeping, Sat 100%, O2 dc'd
--- NOTE | 2019-09-11 13:27 | SUR.PHASEI ---
Franki Tuttle and Mely here, will admit patient overnight. Dr Boone speaking with . Coordinator notified. Patient responsive to voice. Very drowsy, not conversive - unintelligible one word response. dr. Boone will write transfer orders soon.
--- NOTE | 2019-09-11 13:53 | SUR.PHASEI ---
continue to wait for IV kepra from pharmacy, receiving nurse at lunch, no transfer orders yet. Pt continues to sleep, VSS, resp unlabored.
[2019-09-11] MEDS: levETIRAcetam 1,000 MG in SODIUM CHLORIDE 0.9% 100 ML 440 ML IV (14:15)
--- NOTE | 2019-09-11 14:26 | SUR.PHASEI ---
1420 Report given to AC RN, SEVEN Menard initiated (see MAR for time); 1426 Reaching out to surgeon for transfer orders. Pt stable
--- NOTE | 2019-09-11 14:44 | PM.PN.1 ---
Subjective Subjective Date Patient Seen: 09/11/19 Time Patient Seen: 13:30 Interval history: Patient seen by Dr. Tuttle at my request and he witnessed seizure activity. Per his conversation with neurologist, patient has been loaded with Keppra and brought in for observation. If no further seisures noted, will go home tomorrow on Keppra to f/u with neurologist. Exam Vital Signs (past 8 hours): - 09/11/19 07:09 09/11/19 11:29 09/11/19 11:37 Temperature 96.7 F L 98.1 F Pulse Rate 59 L 86 70 Respiratory Rate 15 16 11 L Blood Pressure 109/77 136/80 136/81 Pulse Oximetry 99 91 98 09/11/19 11:46 09/11/19 11:47 09/11/19 11:52 Temperature Pulse Rate 650 H 59 L 61 Respiratory Rate 20 11 L 11 L Blood Pressure 142/86 H 133/83 119/81 Pulse Oximetry 90 L 95 96 09/11/19 11:57 09/11/19 12:02 09/11/19 12:07 Temperature Pulse Rate 70 74 73 Respiratory Rate 12 18 19 Blood Pressure 117/76 111/78 111/72 Pulse Oximetry 98 94 99 09/11/19 12:12 09/11/19 12:17 09/11/19 12:22 Temperature Pulse Rate 73 70 70 Respiratory Rate 19 9 L 13 Blood Pressure 121/61 125/81 118/75 Pulse Oximetry 99 100 99 09/11/19 12:27 09/11/19 12:32 09/11/19 12:37 Temperature Pulse Rate 65 66 78 Respiratory Rate 13 109 H 12 Blood Pressure 115/77 112/74 118/77 Pulse Oximetry 98 97 97 09/11/19 12:42 09/11/19 13:02 09/11/19 13:07 Temperature 98.6 F Pulse Rate 69 63 67 Respiratory Rate 12 12 12 Blood Pressure 112/73 107/63 105/63 Pulse Oximetry 99 100 100 09/11/19 13:12 09/11/19 13:22 09/11/19 13:31 Temperature Pulse Rate 65 67 67 Respiratory Rate 11 L 13 12 Blood Pressure 104/66 105/64 105/66 Pulse Oximetry 100 100 99 09/11/19 13:37 09/11/19 13:47 09/11/19 13:57 Temperature Pulse Rate 67 69 67 Respiratory Rate 12 12 12 Blood Pressure 103/66 108/65 100/68 Pulse Oximetry 99 98 98 09/11/19 14:07 09/11/19 14:17 09/11/19 14:27 Temperature Pulse Rate 70 69 67 Respiratory Rate 12 13 12 Blood Pressure 105/72 107/65 107/64 Pulse Oximetry 98 98 99 09/11/19 14:35 Temperature 98.1 F Pulse Rate 70 Respiratory Rate 13 Blood Pressure 103/66 Pulse Oximetry 98 Oxygen Delivery Method Room Air Oxygen Flow Rate 2
--- NOTE | 2019-09-11 14:45 | SUR.PHASEI ---
orders received, preparing to transfer, pt stable.
--- NOTE | 2019-09-11 15:01 | SUR.PHASEI ---
1449 to room 207, bed down and locked, call light within reach, pt transferred herself to the bed. bandaids remain CDI. SCDs on. Purse and clothing bag to the closet. No questions from staff or patient. Informed them that Dr. Boone had sent the spouse home. Stable with no further seizure activity.
--- NOTE | 2019-09-11 16:20 | DI.CT.S_ITS ---
PROCEDURE: CT HEAD/BRAIN WO CON INDICATIONS: post operative seizure, h/o epilepsy TECHNIQUE: Noncontrast 4.5 mm thick angled axial sections acquired from the foramen magnum to the vertex, with coronal and sagittal reformats. For radiation dose reduction, the following was used: automated exposure control, adjustment of mA and/or kV according to patient size. COMPARISON: None. FINDINGS: Image quality: Excellent. CSF spaces: Basal cisterns are patent. No extra-axial fluid collections. Ventricles are normal in size and shape. Brain: No midline shift. No intracranial masses or hemorrhage. Frazier-white matter interface is normal. Skull and face: Calvarium and visualized facial bones are intact, without suspicious lesions. Sinuses: Visualized sinuses and mastoids are clear. IMPRESSION: 1. No acute intracranial process. Dictated by: Shavon Hernandez M.D. on 09/11/2019 at 17:36 Approved by: Shavon Hernandez M.D. on 09/11/2019 at 17:37
[2019-09-11] MEDS: LACTATED RINGERS 1,000 ML 84 ML IV (16:26)
--- NOTE | 2019-09-11 17:39 | PM.PNPO.1 ---
Subjective Subjective Date Patient Seen: 09/11/19 Time Patient Seen: 17:39 Interval history: Patient more alert. Complaining of pain in her abdomen. She does that a CT of her head. I reviewed it and I do not see anything glaring though we will have to wait on the official report. We will see if I can adjust her pain medication to make her more comfortable. Exam Vital Signs (past 8 hours): - 09/11/19 11:29 09/11/19 11:37 09/11/19 11:46 Temperature 98.1 F Pulse Rate 86 70 650 H Respiratory Rate 16 11 L 20 Blood Pressure 136/80 136/81 142/86 H Pulse Oximetry 91 98 90 L 09/11/19 11:47 09/11/19 11:52 09/11/19 11:57 Temperature Pulse Rate 59 L 61 70 Respiratory Rate 11 L 11 L 12 Blood Pressure 133/83 119/81 117/76 Pulse Oximetry 95 96 98 09/11/19 12:02 09/11/19 12:07 09/11/19 12:12 Temperature Pulse Rate 74 73 73 Respiratory Rate 18 19 19 Blood Pressure 111/78 111/72 121/61 Pulse Oximetry 94 99 99 09/11/19 12:17 09/11/19 12:22 09/11/19 12:27 Temperature Pulse Rate 70 70 65 Respiratory Rate 9 L 13 13 Blood Pressure 125/81 118/75 115/77 Pulse Oximetry 100 99 98 09/11/19 12:32 09/11/19 12:37 09/11/19 12:42 Temperature 98.6 F Pulse Rate 66 78 69 Respiratory Rate 109 H 12 12 Blood Pressure 112/74 118/77 112/73 Pulse Oximetry 97 97 99 09/11/19 13:02 09/11/19 13:07 09/11/19 13:12 Temperature Pulse Rate 63 67 65 Respiratory Rate 12 12 11 L Blood Pressure 107/63 105/63 104/66 Pulse Oximetry 100 100 100 09/11/19 13:22 09/11/19 13:31 09/11/19 13:37 Temperature Pulse Rate 67 67 67 Respiratory Rate 13 12 12 Blood Pressure 105/64 105/66 103/66 Pulse Oximetry 100 99 99 09/11/19 13:47 09/11/19 13:57 09/11/19 14:07 Temperature Pulse Rate 69 67 70 Respiratory Rate 12 12 12 Blood Pressure 108/65 100/68 105/72 Pulse Oximetry 98 98 98 09/11/19 14:17 09/11/19 14:27 09/11/19 14:35 Temperature 98.1 F Pulse Rate 69 67 70 Respiratory Rate 13 12 13 Blood Pressure 107/65 107/64 103/66 Pulse Oximetry 98 99 98 09/11/19 15:27 09/11/19 15:38 09/11/19 16:03 Temperature 98.5 F 97.2 F L 97.4 F L Pulse Rate 69 65 70 Respiratory Rate 18 16 18 Blood Pressure 145/105 H 109/55 L 108/67 Pulse Oximetry 97 100 99 09/11/19 17:05 Temperature 98.0 F Pulse Rate 67 Respiratory Rate 18 Blood Pressure 104/60 Pulse Oximetry 96 Oxygen Delivery Method Room Air Oxygen Flow Rate 0 Assessment & Plan Post-op Postoperative Procedures: Procedures Operation Date: 09/11/19 07:45 Actual Procedures Side Surgeon p Laparoscopic Cholecystectomy Not Applicable Jw Boone MD
[2019-09-11 17:53] LABS: Add Manual Diff / Slide Review NO; Basophils Absolute Auto 0 /uL (0-100); Basophils Percent Auto 0.1 % (0-2); Eosinophils Absolute Auto 0 /uL (0-450); Hematocrit 43.1 % (36-46); Hemoglobin 15.1 g/dL (12.0-16.0); Lymphocytes Absolute Auto 700 /uL (1100-4500); Lymphocytes Percent Auto 5.1 % (25-40); Mean Corpuscular Hemoglobin 30.5 PG (26-34); Mean Corpuscular Volume 86.9 fL (80-100); Monocytes Absolute Auto 100 /uL (0-900); Neutrophils Absolute Auto 12500 /uL (1500-7000); Neutrophils Percent Auto 93.8 % (50-75); Platelet Count 244 X10^3/uL (150-400); Red Blood Cell Count 4.96 X10^6/uL (4.0-5.2); Red Cell Distribution Width 12.4 % (11.6-14.8); White Blood Cell Count 13.3 X10^3/uL (4.5-11.0)
[2019-09-11 18:10] LABS: Alanine Aminotransferase 27 IU/L (<35); Albumin 4.5 g/dL (3.5-5.0); Albumin Globulin Ratio 1.3 (1.0-2.8); Alkaline Phosphatase 72 U/L (38-126); Aspartate Aminotransferase 38 IU/L (14-36); BUN Creatinine Ratio 10.7 (6-22); Bilirubin Total 1.1 mg/dL (0.2-1.3); Bilirubin Unconjugated 1.1 mg/dL (0.0-1.1); Blood Urea Nitrogen 8 mg/dL (7-17); Calcium 9.3 mg/dL (8.4-10.2); Carbon Dioxide 27 mmol/L (22-32); Chloride 102 mmol/L (98-107); Estimated Glomerular Filt Rate > 60.0 mL/min (>60); Globulin 3.4 g/dL (1.7-4.1); Glucose 136 mg/dL (70-100); HEMOLYSIS < 15 (0-50); Magnesium 1.9 mg/dL (1.6-2.3); Potassium 4.2 mmol/L (3.4-5.1); Sodium 136 mmol/L (137-145); Total Protein 7.9 g/dL (6.3-8.2)
--- NOTE | 2019-09-11 18:53 | PC.NURSE ---
Patient was brought to acute care from the Recovery after having a seizure postoperatively. She was given Keppra and has been very sleepy since arrival on the unit. Her admission assessment was wnl, she has four lap site bandages which are clean, dry and intact. She complains of right sided pain in her abdomen which goes up into her right shoulder. She does not request anything for pain. She called her while I was in the room and she told him that she would probably be discharged tomorrow. She refused to turn in any valuables. She has her cell phone with her, everything else is in the closet. Patient was asked to call for help if she needs to get out of bed. Call wilson within reach, bed alarm is on.
[2019-09-11] MEDS: ENOXAPARIN 40 MG/0.4 ML SYRINGE SUBCUT (21:11)
[2019-09-11] MEDS: KETOROLAC 30 MG/ML VIAL IV (21:11)
[2019-09-11] MEDS: GABAPENTIN 300 MG CAPSULE PO (21:11)
[2019-09-11] MEDS: levETIRAcetam 500 MG in SODIUM CHLORIDE 0.9% 100 ML 420 ML IV (23:57)
[2019-09-12 00:16] VITALS: BP 105/51; PULSE 66; RESP 16; TEMP 36.4; O2SAT 96
--- NOTE | 2019-09-12 00:24 | PC.NURSE ---
Addendum entered by Mayra Saleh R.N. 09/12/19 07:52: Patient repoorts she still has some burning with urination but also shared that she has had a yeast infection for a while and has been trying OTC medications without improvement. Denies itching but states she has a thick yellow discharge which is foul smelling. This information was reported to Dr Tuttle when he saw her this morning. Addendum entered by Mayra Saleh R.N. 09/12/19 07:09: States pain got a little bit better but now says it is back to 5/10 so medication with Vicodin. Addendum entered by Mayra Saleh R.N. 09/12/19 00:32: Does report mild burning when urinated on previous shift so will monitor for continued problems vs resolution. Original Note: Patient is drowsy but responsive and oriented except did not know day of month or why she is in the hospital (does remember she had surgery). Breath sounds CTA with RA st of 96%. HRR. Denies nausea. BT hypoactive and denies flatus but have burped. Bandaid dressings x 4 to abdomen and are all CDI. Is able to turn herself in bed. Reports prior to hospitalization she would have intermittent episodes of dizziness and lose her balance and reports she has fallen several times in past 3 months and reports this is related to chronic back problems; will provide assistance when getting out of bed. Declines use of SCD's even after discussion of purpose; reminded to ankle wave. States she is having pain in right shoulder and is tender in abdomen rating severity as 4/10 but declines offer of pain medication. Seizure pads in place. Fall risk score is high and bed alarm is activated.
[2019-09-12 05:15] VITALS: BP 121/65; PULSE 64; RESP 16; TEMP 36.3; O2SAT 95
[2019-09-12] MEDS: LACTATED RINGERS 1,000 ML 84 ML IV (05:39)
[2019-09-12] MEDS: KETOROLAC 30 MG/ML VIAL IV (05:39)
[2019-09-12] MEDS: HYDROCODONE/ACET 5/325 TABLET 2 TAB PO (07:06)
--- NOTE | 2019-09-12 10:09 | P.DS_ITS ---
History of Present Illness History of Present Illness Chief complaint: [id number] Narrative: The patient is a woman with intermittent right upper quadrant pain and persistent left lower quadrant pain. Pain in her right upper quadrant is usually after eating and it does not seem to matter what she eats. She has also had some nausea. She has undergone an evaluation including a CT scan, ultrasound, and a CCK HIDA scan. I was unimpressed by the CT findings in the ultrasound did not show stones or gallbladder wall thickening. However, CCK HIDA showed severe dyskinesia with an 11% ejection fraction. Because this pain is persistent and intermittent accompanied by food intake I have talked to her and she is opted to undergo removal of her gallbladder. While ice expect her to have some improvement interrupted upper quadrant pain this will probably not affect her left lower quadrant symptoms. Discharge Providers Provider Discharge Date: 09/12/19 Primary care physician: Neema Garcia MD Consults: 09/11/19 15:44 Consult to Discharge Planning Routine Comment: Discharge provider: Jw Boone MD Summary Hospital Course Discharge Diagnosis: Gallbladder dyskinesia chronic Seizure disorder acute with a prior history of seizures years ago Gastroesophageal reflux disease chronic History of migraines chronic. Is on no medication for this. These apparently are infrequent. Chronic back pain treated with gabapentin. Hospital Course: Patient underwent a laparoscopic cholecystectomy which was uneventful. Postoperatively however in the recovery room patient was noted to have seizure activity her on 2 separate events. She was loaded with Keppra 1 g IV on the advice of a neurologist and was continued on Keppra at 500 mg b.i.d. once loaded with Keppra she had no further seizure activity. She had a CT scan of the head that was unremarkable. She complained of vaginal discharge consistent with a yeast infection and was treated with oral Diflucan. She did not feel she had a urinary tract infection but a urinalysis was sent none the LEss. She is discharge to follow up with her primary care physician Dr. Neema Garcia for who will be sent a copy of this report. She is advised not to drive until she is told specifically by of physician that it is okay to do so. She has a follow-up appointment with me in about a week or 2. She is no longer taking Maxalt or for wrap a middle and they were removed from her medication list. She is to continue taking her gabapentin for chronic back pain. Status at Discharge Cognitive/behavioral status at discharge: oriented Functional status at discharge: independent ambulation Overall status at discharge: patient is progressing back to baseline Time Spent with Patient Time spent: Greater than 30 minutes Exam Vital Signs (past 8 hours): - 09/12/19 05:15 Temperature 97.3 F L Pulse Rate 64 Respiratory Rate 16 Blood Pressure 121/65 Pulse Oximetry 95 Oxygen Delivery Method Room Air Oxygen Flow Rate 0 Narrative Exam Narrative: Patient is alert. Appears to be tired. Her lungs are clear. Abdomen is scaphoid and soft. Band-Aids are dry and intact. No bruising or redness around them. Objective Labs Result Diagrams: 09/11/19 17:40 09/11/19 17:40 Labs: Laboratory Results - last 24 hr 09/11/19 09/11/19 17:40 17:40 WBC 13.3 H RBC 4.96 Hgb 15.1 Hct 43.1 MCV 86.9 MCH 30.5 MCHC 35.0 RDW 12.4 Plt Count 244 Neut % (Auto) 93.8 H Lymph % (Auto) 5.1 L [place] % (Auto) 1.0 L Eos % (Auto) 0.0 L Baso % (Auto) 0.1 Neut # (Auto) 29237 H Lymph # (Auto) 700 L [place] # (Auto) 100 Eos # (Auto) 0 Baso # (Auto) 0 Sodium 136 L Potassium 4.2 Chloride 102 Carbon Dioxide 27 BUN 8 Creatinine 0.75 Estimated GFR > 60.0 BUN/Creatinine Ratio 10.7 Glucose 136 H Calcium 9.3 Magnesium 1.9 Total Bilirubin 1.1 Conjugated Bilirubin 0.0 Unconjugated Bilirubin 1.1 AST 38 H ALT 27 Alkaline Phosphatase 72 Total Protein 7.9 Albumin 4.5 Globulin 3.4 Albumin/Globulin Ratio 1.3 Discharge Plan Discharge Plan Patient Disposition: Home Discharge comment: Your operation went well. It actually only took under an hour to do your procedure. Unfortunately you had witnessed seizures in the recovery room. Therefore you will have to take medication for seizures. Discharge Med Rec/Prescriptions Prescriptions: New hydrocodone-acetaminophen [Alexander] 5-325 mg tablet See Rx Instructions .ROUTE .COMPLEX PRN (Reason: painful procedure) Qty: 20 RF: 0 levetiracetam [Keppra] 500 mg tablet 500 mg PO BID Qty: 60 RF: 1 Continued gabapentin [Neurontin] 300 mg Capsule 300 mg PO BEDTIME RF: 0 omeprazole 40 mg capsule,delayed release(DR/EC) 40 mg PO DAILY RF: 0 verapamil 40 mg tablet 40 mg PO TID Qty: 90 RF: 3 rizatriptan [Maxalt] 10 mg tablet See Rx Instructions PO .COMPLEX Qty: 10 RF: 2 Follow up/Referrals: wJ Boone MD [Physician] - As previously scheduled (If you need to reach a doctor please call our office. If the office is closed listen to the entire message and at the end you will be connected with the page cooky machine operator who will call the doctor on-call) Neema Garcia MD [Primary Care Provider] - 2 Weeks (Call Dr. Garcia's office and make an appointment regarding your new seizures. She will have to refer you to a neurologist.) Discharge Orders: Discharge (Order); Ordered 09/12/19 Ordered By: Jw Boone Provider Discharge Instructions Diet: Diet as Tolerated Activity: Do not lift over 10 lb or strain for the next 4 weeks. You may walk. No other exercise. No tub or pool for at least [address] due to your seizures. You cannot drive until your do ctor/neurologist says it is OK. Other treatments: if you have another seizure, go to the ER. Skin/Wound/Dressing Care Report to your healthcare provider any signs of infection, such as:: increased pain, unusual drainage and unusual redness Dressing: You may remove the Band-Aids tomorrow and shower. Leave the tape under the Band-Aids fall off on its own. Visit Report/Discharge Packet Instructions: DI for Seizure Disorder -- Adult, DI for Cholecystectomy Discharge Data Primary Care Provider: Neema Garcia Attending Provider: Jw Boone
--- NOTE | 2019-09-12 10:14 | P.PN_ITS ---
Subjective Subjective Date Patient Seen: 09/12/19 Time Patient Seen: 08:00 Interval history: Betsy Austin is a 39-year-old female with past medical history of lupus, prior seizures (age 14, stopped medications a few years ago), migraines who after laparoscopic cholecystectomy suffered a seizure lasting for couple of minutes. She was admitted overnight for further monitoring and given a Keppra load and started on 500 mg of Keppra twice daily. She had no seizures overnight and was alert and oriented, although slightly sleepy this morning. She further complained of some dysuria and yellow vaginal discharge, but no fevers or chills and no abdominal pain, nausea, vomiting. Urinalysis is currently pending. Exam Vital Signs (past 8 hours): - 09/12/19 05:15 Temperature 97.3 F L Pulse Rate 64 Respiratory Rate 16 Blood Pressure 121/65 Pulse Oximetry 95 Oxygen Delivery Method Room Air Oxygen Flow Rate 0 Narrative Exam Narrative: GENERAL APPEARANCE: Well developed, well nourished, female appears comfortable after ativan. She remains quite sleepy. SKIN: Inspection of the skin reveals no rashes, ulcerations or petechiae. HEENT: Normocephalic atraumatic, extraocular muscles are intact, oropharynx is clear and mucous membranes are moist, neck is supple without adenopathy. Pupils normal NECK: Supple and symmetric. There was no thyroid enlargement, and no tenderness, or masses were felt. CHEST: Normal AP diameter and normal contour without any kyphoscoliosis. LUNGS: Auscultation of the lungs revealed no wheezes, rhonchi, or rales. CARDIOVASCULAR: There was a regular rate and rhythm without any murmurs, gallops, rubs. Peripheral pulses were 2+ and symmetric. ABDOMEN: Soft and nontender with normal bowel sounds. No ascites was noted. MUSCULOSKELETAL: There was no tenderness or effusions noted. Muscle strength and tone were normal. EXTREMITIES: No cyanosis, clubbing or edema. NEUROLOGIC: Alert and oriented x3. Follows commands and answers questions approp riately. Drowsy and falls asleep easily, but No focal neurological deficits. Objective Labs Result Diagrams: 09/11/19 17:40 09/11/19 17:40 Labs: Laboratory Results - last 24 hr 09/11/19 09/11/19 17:40 17:40 WBC 13.3 H RBC 4.96 Hgb 15.1 Hct 43.1 MCV 86.9 MCH 30.5 MCHC 35.0 RDW 12.4 Plt Count 244 Neut % (Auto) 93.8 H Lymph % (Auto) 5.1 L [place] % (Auto) 1.0 L Eos % (Auto) 0.0 L Baso % (Auto) 0.1 Neut # (Auto) 21189 H Lymph # (Auto) 700 L [place] # (Auto) 100 Eos # (Auto) 0 Baso # (Auto) 0 Sodium 136 L Potassium 4.2 Chloride 102 Carbon Dioxide 27 BUN 8 Creatinine 0.75 Estimated GFR > 60.0 BUN/Creatinine Ratio 10.7 Glucose 136 H Calcium 9.3 Magnesium 1.9 Total Bilirubin 1.1 Conjugated Bilirubin 0.0 Unconjugated Bilirubin 1.1 AST 38 H ALT 27 Alkaline Phosphatase 72 Total Protein 7.9 Albumin 4.5 Globulin 3.4 Albumin/Globulin Ratio 1.3 Assessment & Plan Assessment & Plan narrative: Betsy Austin is a 39-year-old female with past medical history of lupus, prior seizures (age 14, stopped medications a few years ago), migraines who after laparoscopic cholecystectomy suffered at least two seizures lasting for couple of minutes post operatively. Did discuss with neurology consultation at [facility] who recommended Keppra loading given history of seizure and to continue keppra 500 mg BID and have her follow up with outpatient neurology. Patient had an unremarkable laboratory evaluation a negative CT of her head. She will need a referral from her primary care provider Dr. Gacria to an outpatient neurologist. 1. Seizure - patient with reported history of seizures at age 14 and was on anti- epileptics until 10 years ago. No seizure episodes until now. - this may represent a reaction to anesthesia medication and a reduction in her seizure threshold. - Non focal exam findings, and CT was unremarkable - Ordered for 1000 mg IV keppra x1, continue 500 mg BID as an outpatient. Will require outpatient neurology follow up and seizure precautions, including no driving for 6 months and no tub baths. -basic laboratory evaluation was unremarkable except for a mild leukocytosis which can be reactive after surgery. 2. Dysuria and vaginal discharge - will follow up UA, likely fungal which patient has tried OTC meds without effectiveness. Will give single dose of fluconazole , possible antibiotics to treat urine if appears infected. Patient will be discharged today, agree with this plan.
[2019-09-12 10:16] VITALS: BP 105/66; PULSE 61; RESP 16; TEMP 36.8; O2SAT 98
[2019-09-12] MEDS: FLUCONAZOLE 150 MG TABLET PO (10:31)
[2019-09-12] MEDS: ENOXAPARIN 40 MG/0.4 ML SYRINGE SUBCUT (10:31)
[2019-09-12] MEDS: LACTATED RINGERS 250 ML IV (10:31)
[2019-09-12 11:33] VITALS: O2SAT 98
--- NOTE | 2019-09-12 11:34 | PC.NURSE ---
Assess- Patient is doing well this morning, she has been discharged to home as soon as she can urinate and test results come back. She states that she is a bit dizzy. She is sleepy from [facility] as she had a seizure down in recovery after her gallbladder surgery. She has bandaide dressings that are all cdi. Resting comfortably now.
[2019-09-12] MEDS: LACTATED RINGERS 500 ML IV (11:50)
[2019-09-12] MEDS: levETIRAcetam 250 MG TABLET 500 MG PO (11:55)
[2019-09-12 12:06] LABS: RBC Urine None Seen (0-5/HPF)
[2019-09-12 12:07] LABS: Appearance Urine UA CLEAR; Bilirubin Urine UA NEGATIVE (NEGATIVE); Color Urine UA YELLOW; Glucose Urine UA NEGATIVE (Negative); Ketones Urine UA TRACE (NEGATIVE); Leukocyte Esterase Urine UA NEGATIVE (NEGATIVE); Nitrite Urine UA NEGATIVE (Negative); Occult Blood Urine UA NEGATIVE (Negative); Protein Urine UA NEGATIVE (Negative); Urobilinogen Urine UA 0.2 E.U./dL (0.2)
[2019-09-12 12:18] LABS: Bacteria Urine Moderate (10-30); Culture Indicated Urine Cult Not Indicated; Mucus Urine 1+ (Negative); Squamous Epithelial Cell Urine 1-5 /HPF (0-5/HPF); WBC Urine 1-5/HPF (0-5/HPF)
--- NOTE | 2019-09-12 14:04 | CM.DANOTE ---
Discharge Planning/Care Management DCP: assessment: case received and discussed in Team Rounds. Dr. Tuttle stated that d/c was planned for later today. Met now with pt and introduced self and role. Pt is found lying in the dark, appears very groggy. Seizure pads in place. Pt is a 39 year old female who admitted yesterday for a planned procedure under care of Dr. Boone. Pt had seizures during this process, neurology was consulted as well as hospitalist Dr. Tuttle. Payer: [employer] Admission status: OBS: per UR CLEMENTE Singh. PCP: Dr. Neema Garcia/[facility] Pt confirms she knows she will d/c today and says she is comfortable with this. Her will be here about 1430. Her main concern is who will tell my how to take care of me?. CLEMENTE Powell and Dr. Tuttle are updated. Dr. Tuttle noted it is likely that pt will not remember much for a short time as she is in postictal state and still undergoing reaction to the Keppra load. He does agree to talk with pt's when he arrives. P: home today as per above CM Discharge Assessment Start: 09/12/19 14:00 Freq: Status: Active Protocol: Document 09/12/19 14:03 ITV (Rec: 09/12/19 14:04 IT [id number]) Discharge Planning Assessment Advance Directives? No History Provided By Patient,Medical Record Has Patient been admitted in last 30 No days? Prior Living Arrangements House Household Members spouse Independent with ADL's Yes Is patient alert and oriented? Yes Review Status In Process Pre-Anesthesia Assessment Start: 09/02/19 11:45 Freq: Status: Complete Protocol: Document 09/02/19 11:45 CAB (Rec: 09/02/19 11:50 CAB [id number]) Pre-Anesthesia Assessment Patient Information Reviewed Via Chart Review Primary Care Provider Lore Hanna Seen Specialist in Last 12 Months Yes Specialist Seen General surgeon,Other Comment Pain specialilst Primary Language Gambian Straightener And Aligner Required No Height 180.34 cm Weight 107.955 kg Body Mass Index (BMI) 33.2 Barriers to Learning None Other Aids No Anesthesia Review Requested No Solar Site Assessment Specialist No alcohol intake current alcohol intake frequency 0-2 drinks per day Smoking Status Never smoker Substance Use Type does not use Pain Present Pain Reported History of Falling (Recent or History of No ) Patient is completely paralyzed or No completely immobile Mental Status Oriented to own ability Is patient on oxygen? No Does patient have BOWSER/SOB No Hx Sleep Apnea No Currently Taking a Beta Anaya No Hx Chest Pain No Hx SOB No Hx Syncope or Dizziness No Anti-Coagulant Therapy No Has a Planning Supervisor No Cardiac Testing No Hx Pacemaker/ICD No Pacemaker Rep Required? No Cardiac Clearance Received Not Applicable Urinary Catheter Present No Hx Urinary Self Catheterization No Diabetes No Patient No Lactating No Hx Drug Resistant Organism No Presence of External or Internal Medical No Devices Have you had any close contact with Unknown, chart review only someone diagnosed with COVID-19? Evaluation/Screening for possible COVID- No 19 infection completed? Marital Status Unkown Patient Discharge Plan Description Return Home Advance Directives? No
== END 2019-09-12 14:38 | disposition home or self-care (01) ==
LOC: OR 11:06
PROVIDERS: Internal Medicine; Admitting Provider Specialist; PCP Internal Medicine; Referring Provider Specialist; Visit Provider Specialist
PROC: 0FT44ZZ Resection of Gallbladder, Percutaneous Endoscopic Approach (ICD-10-PCS; CPT 47562; principal; 2019-09-11 07:45)
DX: G40.909 Epilepsy, unspecified, not intractable, without status epilepticus (principal); K82.8 Other specified diseases of gallbladder; K21.9 Gastro-esophageal reflux disease without esophagitis; K44.9 Diaphragmatic hernia without obstruction or gangrene; E66.3 Overweight; J45.990 Exercise induced bronchospasm; M54.9 Dorsalgia, unspecified; G89.29 Other chronic pain
CPT/HCPCS: 47562; 36415; 70450; 80048; 80076; 81001; 83735; 85025; G0378; J0131; J1100; J1650; J1885; J1953; J2060; J2250; J2405; J2704; J2765; J3010

== ENCOUNTER → 2019-09-17 13:11 | Outpatient (CLI) | payer OTHER, SELFPAY ==
[2019-09-11 18:12] VITALS: BMI 33.2
[2019-09-17 15:00] LABS: Add Manual Diff / Slide Review NO; Basophils Absolute Auto 100 /uL (0-100); Basophils Percent Auto 0.7 % (0-2); Eosinophils Absolute Auto 200 /uL (0-450); Eosinophils Percent Auto 2.5 % (2-4); Hematocrit 42.1 % (36-46); Hemoglobin 14.7 g/dL (12.0-16.0); Lymphocytes Absolute Auto 1300 /uL (1100-4500); Lymphocytes Percent Auto 17.3 % (25-40); Mean Corpuscular HGB Conc 34.9 % (30-36); Mean Corpuscular Hemoglobin 30.4 PG (26-34); Mean Corpuscular Volume 87.1 fL (80-100); Monocytes Absolute Auto 500 /uL (0-900); Monocytes Percent Auto 7.2 % (3-14); Neutrophils Absolute Auto 5400 /uL (1500-7000); Neutrophils Percent Auto 72.3 % (50-75); Platelet Count 236 X10^3/uL (150-400); Red Blood Cell Count 4.83 X10^6/uL (4.0-5.2); Red Cell Distribution Width 12.6 % (11.6-14.8); White Blood Cell Count 7.5 X10^3/uL (4.5-11.0)
[2019-09-17 15:30] LABS: BUN Creatinine Ratio 10.6 (6-22); Blood Urea Nitrogen 10 mg/dL (7-17); Calcium 9.7 mg/dL (8.4-10.2); Carbon Dioxide 25 mmol/L (22-32); Chloride 102 mmol/L (98-107); Estimated Glomerular Filt Rate > 60.0 mL/min (>60); Glucose 95 mg/dL (70-100); HEMOLYSIS < 15 (0-50); Potassium 5.1 mmol/L (3.4-5.1); Sodium 137 mmol/L (137-145)
[2019-09-17 16:19] LABS: Vitamin B12 473 pg/mL (239-931)
== END ==
PROVIDERS: PCP Internal Medicine; Referring Provider Internal Medicine; Visit Provider Internal Medicine
DX: D51.9 Vitamin B12 deficiency anemia, unspecified (principal); R56.9 Unspecified convulsions
CPT/HCPCS: 36415; 80048; 82607; 85025

== ENCOUNTER → 2019-09-25 14:24 | Outpatient (CLI) | payer OTHER, SELFPAY ==
[2019-09-11 18:12] VITALS: BMI 33.2
[2019-09-25 14:59] LABS: Add Manual Diff / Slide Review NO; Basophils Absolute Auto 0 /uL (0-100); Basophils Percent Auto 0.6 % (0-2); Eosinophils Absolute Auto 100 /uL (0-450); Eosinophils Percent Auto 1.2 % (2-4); Hematocrit 38.7 % (36-46); Hemoglobin 13.8 g/dL (12.0-16.0); Lymphocytes Absolute Auto 1700 /uL (1100-4500); Lymphocytes Percent Auto 18.7 % (25-40); Mean Corpuscular HGB Conc 35.7 % (30-36); Mean Corpuscular Hemoglobin 30.6 PG (26-34); Mean Corpuscular Volume 85.9 fL (80-100); Monocytes Absolute Auto 500 /uL (0-900); Neutrophils Absolute Auto 6500 /uL (1500-7000); Neutrophils Percent Auto 73.5 % (50-75); Platelet Count 259 X10^3/uL (150-400); Red Cell Distribution Width 12.8 % (11.6-14.8); White Blood Cell Count 8.9 X10^3/uL (4.5-11.0)
[2019-09-25 15:19] LABS: Alanine Aminotransferase 18 IU/L (<35); Albumin 4.4 g/dL (3.5-5.0); Albumin Globulin Ratio 1.4 (1.0-2.8); Alkaline Phosphatase 62 U/L (38-126); Aspartate Aminotransferase 22 IU/L (14-36); BUN Creatinine Ratio 12.7 (6-22); Bilirubin Total 0.7 mg/dL (0.2-1.3); Blood Urea Nitrogen 9 mg/dL (7-17); Calcium 9.1 mg/dL (8.4-10.2); Carbon Dioxide 26 mmol/L (22-32); Chloride 107 mmol/L (98-107); Estimated Glomerular Filt Rate > 60.0 mL/min (>60); Globulin 3.1 g/dL (1.7-4.1); Glucose 98 mg/dL (70-100); HEMOLYSIS < 15 (0-50); Potassium 3.9 mmol/L (3.4-5.1); Sodium 138 mmol/L (137-145); Total Protein 7.5 g/dL (6.3-8.2)
[2019-09-25 15:20] LABS: Appearance Urine UA CLEAR; Bilirubin Urine UA NEGATIVE (NEGATIVE); Color Urine UA YELLOW; Glucose Urine UA NEGATIVE (Negative); Ketones Urine UA NEGATIVE (NEGATIVE); Leukocyte Esterase Urine UA NEGATIVE (NEGATIVE); Nitrite Urine UA NEGATIVE (Negative); Occult Blood Urine UA NEGATIVE (Negative); Protein Urine UA TRACE (Negative); Specific Gravity Urine UA 1.025 (1.000-1.035); Urobilinogen Urine UA 0.2 E.U./dL (0.2)
[2019-09-30 21:07] LABS: Levetiracetam Keppra < 1.0 ug/mL (10.0-40.0)
== END ==
PROVIDERS: PCP Internal Medicine; Referring Provider Specialist; Visit Provider Specialist
DX: R10.12 Left upper quadrant pain (principal); R11.0 Nausea; Z90.49 Acquired absence of other specified parts of digestive tract; R56.9 Unspecified convulsions; R30.0 Dysuria
CPT/HCPCS: 36415; 80053; 80177; 81003; 85025

== ENCOUNTER → 2019-10-09 09:28 | Outpatient (CLI) | payer OTHER, SELFPAY ==
[2019-09-11 18:12] VITALS: BMI 33.2
--- NOTE | 2019-10-09 10:13 | DI.CT.S_ITS ---
PROCEDURE: CT ABDOMEN PELVIS W CON INDICATIONS: persistent upper abd pain/nausea post lap choly TECHNIQUE: After the administration of oral and intravenous contrast, 5 mm thick sections acquired from the diaphragms to the symphysis. 5 mm thick coronal and sagittal reformats were performed. For radiation dose reduction, the following was used: automated exposure control, adjustment of mA and/or kV according to patient size. COMPARISON: [facility], CT, CT ABDOMEN PELVIS W CON, 01/02/2018, 10:53. FINDINGS: Image quality: Excellent. ABDOMEN: Lung bases: Lung bases are clear. Heart size is normal. Solid organs: Subcentimeter poorly defined hepatic focal entities, statistically cysts, however technically too small to characterize accurately. Mild hepatic steatosis Gallbladder surgically absent. Biliary system is non-dilated. Pancreas enhances normally. Spleen is normal in size and enhancement. No adrenal nodules. Kidneys are normal in size and enhancement, without hydronephrosis. Peritoneum and bowel: No free fluid or air. Appendix is not clearly identified however no suspicious pericecal inflammatory changes are seen. Moderate stool. No specific transition point to suggest bowel obstruction Nodes and vessels: No retroperitoneal or mesenteric adenopathy. Aorta and inferior vena cava are normal in caliber. Miscellaneous: No ventral hernias. PELVIS: Genitourinary: Bladder wall thickness is normal. Ring-enhancing left adnexal focus on image 82/2 probably hemorrhagic follicle (in the setting of negative test) Miscellaneous: No inguinal hernias or adenopathy. Bones: No suspicious bony lesions. No vertebral body compression fractures. IMPRESSION: Status post cholecystectomy. No evidence of abscess or postoperative fluid collection/hematoma. No bowel obstruction. Moderate stool Presumed hepatic cysts Mild hepatic steatosis Elsewhere, no acute abnormality Additional chronic and incidental findings as above. Dictated by: Roque Sinclair M.D. on 10/09/2019 at 11:55 Approved by: Roque Sinclair M.D. on 10/09/2019 at 12:03
== END ==
PROVIDERS: PCP Internal Medicine; Referring Provider Specialist; Visit Provider Specialist
DX: R10.12 Left upper quadrant pain (principal); K76.0 Fatty (change of) liver, not elsewhere classified; R11.0 Nausea; Z90.49 Acquired absence of other specified parts of digestive tract
CPT/HCPCS: 74177; Q9967

== ENCOUNTER → 2019-12-27 14:39 | Outpatient (CLI) | payer OTHER, SELFPAY ==
[2019-09-11 18:12] VITALS: BMI 33.2
[2019-12-30 15:44] LABS: COVID19 Sendout Not Detected (Not Detect)
== END ==
PROVIDERS: PCP Internal Medicine; Visit Provider Physician Assistant
DX: Z11.59 Encounter for screening for other viral diseases (principal)
CPT/HCPCS: 87635

== ENCOUNTER → 2020-01-20 18:56 | Outpatient (ROUT) | payer OTHER, SELFPAY ==
[2019-09-11 18:12] VITALS: BMI 33.2
== END ==
PROVIDERS: PCP Internal Medicine; Visit Provider Internal Medicine
DX: N39.0 Urinary tract infection, site not specified (principal)
CPT/HCPCS: 87086

== ENCOUNTER 2021-03-02 18:09 | Emergency (ER) | payer OTHER, SELFPAY ==
[2019-09-11 18:12] VITALS: BMI 33.2
[2021-03-02 18:46] VITALS: BP 116/70; PULSE 77; RESP 18; TEMP 37.1; O2SAT 100; BMI 32.1
--- NOTE | 2021-03-02 18:55 | DI.RAD.S_ITS ---
PROCEDURE: XR ANKLE LT MIN 3V INDICATIONS: swelling TECHNIQUE: 3 views of the ankle were acquired. COMPARISON: [facility], CR, XR ANKLE RT MIN 3V, 11/14/2017, 17:21. FINDINGS: Bones: No fractures or dislocations. Ankle mortise is normally aligned. No suspicious bony lesions. Soft tissues: No tibiotalar joint effusion. Achilles tendon appears normal. Lateral soft tissue swelling noted. IMPRESSION: Lateral soft tissue swelling without fracture or foreign body Approved by: Cristian Mccormick M.D. on 03/02/2021 at 18:37
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
== END 2021-03-02 21:30 | disposition home or self-care (01) ==
PROVIDERS: Emergency Provider Emergency Medicine; PCP Internal Medicine
DX: S93.402A Sprain of unspecified ligament of left ankle, initial encounter (principal); X50.1XXA Overexertion from prolonged static or awkward postures, initial encounter
CPT/HCPCS: 73610; 99283

== ENCOUNTER → 2021-04-05 16:49 | Outpatient (CLI) | payer OTHER, SELFPAY ==
[2019-09-11 18:12] VITALS: BMI 33.2
--- NOTE | 2021-04-05 | DI.MRI.S_ITS ---
PROCEDURE: MR ANKLE LT WO CON INDICATIONS: Pain in left ankle and joints of left foot TECHNIQUE: Noncontrast sagittal T1 spin echo and T2 fast spin echo with fat saturation, axial proton density fast spin echo and T2 fast spin echo with fat saturation, coronal T1 spin echo and T2 fast spin echo with fat saturation through the ankle/hindfoot. COMPARISON: [facility], CR, XR ANKLE LT MIN 3V, 03/02/2021, 18:48. FINDINGS: Image quality: Excellent. Bones and joints: There are small areas of bone marrow edema within the medial malleolus and medial talus along the deltoid tendon attachments. No associated fractures identified. The findings are suggestive of stress reactions or nondisplaced avulsion injuries. No hindfoot coalitions. No osteochondral injuries of the talar dome. There is a small tibiotalar joint effusion. Medial structures: The posterior tibialis, flexor digitorum longus, and flexor hallucis longus tendons are intact. There is a small amount of tenosynovial fluid along the posterior tibialis tendon. The posterior tibial neurovascular bundle appears normal within the tarsal tunnel, without extrinsic mass effect. The deep and superficial layers of the deltoid ligament are thickened and intermediate in signal consistent with moderate sprains. The spring ligament components appear intact. Lateral structures: There is periarticular subcutaneous edema laterally. The anterior talofibular, calcaneofibular, and posterior talofibular ligaments appear thickened with intermediate signal and periligamentous edema consistent with moderate sprains. More superiorly, the anterior and posterior tibiofibular ligaments appear intact, as is the intermalleolar ligament. The tibiofibular syndesmosis is normal in width at 2 mm or less. The peroneus longus and brevis tendons demonstrate normal location and morphology with a small amount of tenosynovial fluid and mild peritendinous edema. Adjacent bony peroneal tubercle and retrotrochlear prominence are normal in size. The sinus tarsi demonstrates normal fatty signal, without edema, fibrosis, or cyst formation. The calcaneonavicular and calcaneocuboid components of the bifurcate ligament appear intact. The dorsal calcaneocuboid ligament appears intact. Anterior structures: The tibialis anterior, extensor hallucis longus, and extensor digitorum longus tendons appear intact. The dorsal talonavicular ligament appears intact. Posterior and plantar structures: Achilles tendon is intact. Medial and lateral bands of the plantar fascia are of normal thickness. No abductor digiti quinti muscle atrophy to suggest Waddell neuropathy. IMPRESSION: 1. Moderate sprain of the deltoid ligament with mild bone marrow edema along its attachment sites compatible with stress reactions or nondisplaced avulsion injuries. No displaced avulsion fracture identified. 2. Moderate sprains of the anterior and posterior talofibular and calcaneofibular ligaments laterally. 3. Mild tenosynovitis and peritendinitis along the peroneal tendons which appear intact. 4. Small tibiotalar joint effusion. Dictated by: Lance Taylor M.D. on 04/06/2021 at 9:49 Approved by: Lance Taylor M.D. on 04/06/2021 at 10:05
== END ==
PROVIDERS: PCP Internal Medicine; Referring Provider Internal Medicine; Visit Provider Internal Medicine
DX: M25.572 Pain in left ankle and joints of left foot (principal); S93.412A Sprain of calcaneofibular ligament of left ankle, initial encounter; S93.422A Sprain of deltoid ligament of left ankle, initial encounter; S93.492A Sprain of other ligament of left ankle, initial encounter; M65.872 Other synovitis and tenosynovitis, left ankle and foot; M25.472 Effusion, left ankle
CPT/HCPCS: 73721